=== PATIENT | female | born 1960 | race Caucasian/White ===

== ENCOUNTER → 2017-08-29 15:32 | Outpatient (CLI) | payer OTHER, SELFPAY ==
--- NOTE | 2017-08-29 | FLU_PTH ---
PATIENT: MANNY POOLE LOC: [facility] U#:[id number] AGE/SX: 65/F ROOM: RE08/29/[address]: Dr. Gabby Fofana MD : 1960 BED: DIS: SPEC #: [id number] RECD: 08/31/17 12:11 STATUS: [place] #: [id number] MARTA: 08/29/17 00:[address]: Gabby Fofana DEPT: CYTOLOGY RECD BY: Bernardo Jackson ENTERED: 08/31/17 14:25 SP TYPE: Fluid OTHR DR: Dr. Sterling Knutson MD Tissues: A - Chest wall, NOS B - Chest wall, NOS Procedures: Pap Stain (control) Special Stain Group II Surgery Specimen Level IV Cell Block Cytospin Fluid HEADER OPERATION: FNA of left chest nodules PRE-OP DIAGNOSIS: Chest wall mass status post breast CA and radiation TISSUE SUBMITTED: A ? left chest nodule FNA, fluid for cytology, B ? Slides (6) DIAGNOSIS CYTOLOGY A. Fine needle aspiration, left chest nodule (cytospin and cell block): Amorphous proteinaceous debris. No evidence of malignancy. B. Fine needle aspiration, left chest nodule (smears): Macrophages and amorphous proteinaceous debris. No evidence of malignancy. AM:yunior 09/01/17 CYTOLOGY STUDY Slides are reviewed. CYTOLOGY GROSS A - Received is 25 ml of hazy bloody fluid labeled with the patient's name and and designated per the requisition as left chest nodule. Submitted for cytology preparation including cell block. B - Received are six smears labeled with the patient's name and designated per the requisition as left chest nodule. Submitted for staining. 08/31/17 TC:5 CPT: 85457, 99255, 58066
== END ==
PROVIDERS: Family Provider Family Medicine; PCP Family Medicine; Visit Provider Surgery
DX: R22.2 Localized swelling, mass and lump, trunk (principal); Z85.3 Personal history of malignant neoplasm of breast
CPT/HCPCS: 88108; 88305; 88313

== ENCOUNTER 2020-06-27 14:33 | Outpatient (RCR) | payer OTHER, SELFPAY ==
[2016-08-20 16:02] VITALS: BMI 26.6
== END 2020-06-27 23:59 ==
LOC: IMMUN 14:33
PROVIDERS: PCP Family Medicine; Visit Provider Family Medicine
DX: Z23 Encounter for immunization (principal)
CPT/HCPCS: 0011A; 0012A; 91301

== ENCOUNTER 2023-08-08 11:36 | Observation (INO) | payer OTHER, SELFPAY ==
[2023-08-08] VITALS (12 sets, daily range): BP systolic 99–167; BP diastolic 49–88; PULSE 74–89; RESP 16–20; TEMP 36.4–37.1; O2SAT 90–98; BMI 28.1; BMI 26.6
--- NOTE | 2023-08-08 11:55 | RAD_ITS ---
STUDY: X-RAY - RIGHT ANKLE REASON FOR EXAM: Female, 63 years old. Swelling pain, injury. TECHNIQUE: 3 views of the right ankle. COMPARISON: None. FINDINGS: There is a fracture of the medial malleolus of the distal tibia, with 1.3 cm lateral displacement. There is a fracture of the distal fibula with lateral angulation. There is 1.3 cm lateral subluxation of the talus with respect to the distal tibia. Intact visualized talus and calcaneus. The visualized subtalar, talonavicular, calcaneocuboid and tarsal articulations are normal. There is soft tissue swelling overlying the lateral malleolus. RAD/Ankle min 3 Views IMPRESSION: Fracture of the medial malleolus of the distal tibia, with 1.3 cm lateral displacement. Fracture of the distal fibula with lateral angulation. 1.3 cm lateral subluxation of the talus with respect to the distal tibia. Soft tissue swelling overlying the lateral malleolus. Electronically Signed: Dick Ha MD at 12:14 EST ,
--- NOTE | 2023-08-08 12:26 | ED.VIS.LOWEX ---
HPI <SHANNAN Puentes - Last Filed: 08/08/23 16:03> History of Present Illness Chief Complaint: Lower Extremity Injury Narrative Narrative: Patient presenting today with pain to her right ankle after an injury that occurred last night. She reports that she was walking to take the trash down when she rolled her ankle and fell to the ground. She reports that she was unable to put any pressure on her ankle so she crawled back into her house and crawled into her bed. She lives alone and called her brother this morning to have him bring her to the ER for evaluation. She did not hit her head and denies any other injury. [facility] <SHANNAN Puentes - Last Filed: 08/08/23 16:03> [facility] Medical History History of breast cancer Hypertension Home Medications citalopram 20 mg tablet (Celexa) 20 mg PO DAILY 08/16/16 [History Last Taken 08/20/16 06:00] hydrochlorothiazide 12.5 mg tablet 12.5 mg PO DAILY 08/16/16 [History Last Taken Unknown] potassium chloride 20 mEq tablet,extended release(part/cryst) (Klor-Con M) 40 meq PO DAILY 08/16/16 [History Last Taken Unknown] acidophilus 25 million cell-pectin, citrus 100 mg tablet 1 ea PO BID #30 tabs 08/21/16 [Rx Last Taken Unknown] cephalexin 500 mg capsule (Keflex) 500 mg PO BID ##28 08/21/16 [Rx Last Taken Unknown] diazepam 5 mg tablet 5 mg PO 4X/DAY PRN PRN Spasms ##30 08/21/16 [Rx Last Taken Unknown] docusate sodium 100 mg capsule (DOK) 100 mg PO BID ##30 08/21/16 [Rx Last Taken Unknown] oxycodone 5 mg tablet 5 - 10 mg (1 - 2 x 5 mg) PO 4X/DAY PRN PRN Pain ##50 08/21/16 [Rx Last Taken Unknown] promethazine 25 mg tablet 25 mg PO 4X/DAY PRN PRN NAUSEA/VOMITING ##30 08/21/16 [Rx Last Taken Unknown] Allergy/AdvReac Type Severity Reaction Status Date / Time No Known Allergies Allergy Verified 08/08/23 11:37 Surgical History H/O mastectomy Social History Smoking Status: Current every day smoker tobacco type: cigarettes ROS <SHANNAN Puentes - Last Filed: 08/08/23 16:03> ROS ED Constitutional Constitutional ED: Denies chills or fever(s) Cardiovascular Cardiovascular: Denies chest pain Respiratory/Chest Respiratory/Chest: Denies cough or dyspnea Gastrointestinal Gastrointestinal: Denies abdominal pain, nausea or vomiting Musculoskeletal Musculoskeletal: Reports arthralgias; Denies myalgias Integumentary Denies rash Neurologic Neurologic: Denies paresthesias or weakness EXAM <SHANNAN Puentes - Last Filed: 08/08/23 16:03> Physical Exam Const Vital Signs: 08/08/23 11:37 08/08/23 13:10 08/08/23 13:59 Temperature 97.6 F L 98.3 F Temperature Source Temporal Pulse Rate 84 82 Pulse Rate [1 (Initial Baseline)] 89 Pulse Rate [2] 80 Pulse Rate [3] 76 Pulse Rate [4] 74 Pulse Rate [5] 78 Pulse Rate [6] 80 Pulse Rate [7] 78 Respiratory Rate 18 16 Respiratory Rate [1 (Initial Baseline)] 16 Respiratory Rate [2] 16 Respiratory Rate [3] 16 Respiratory Rate [4] 18 Respiratory Rate [5] 16 Respiratory Rate [6] 18 Respiratory Rate [7] 20 H Blood Pressure 135/66 H 155/67 H Blood Pressure [1 (Initial Baseline)] 167/70 H Blood Pressure [2] 167/70 H Blood Pressure [3] 167/70 H Blood Pressure [4] 167/70 H Blood Pressure [5] 122/53 H Blood Pressure [6] 138/83 H Blood Pressure [7] 108/88 H Blood Pressure Mean 89 Pulse Ox 98 98 Oxygen Delivery Method Room Air Nasal Cannula Oxygen Delivery Method [1 (Initial Baseline)] Nasal Cannula Oxygen Delivery Method [2] Nasal Cannula Oxygen Delivery Method [3] Nasal Cannula Oxygen Delivery Method [4] Nasal Cannula Oxygen Delivery Method [5] Nasal Cannula Oxygen Delivery Method [6] Nasal Cannula Oxygen Delivery Method [7] Nasal Cannula Oxygen Flow Rate (L/min) 2 Oxygen Flow Rate (L/min) [1 (Initial Baseline)] 2 Oxygen Flow Rate (L/min) [2] 2 Oxygen Flow Rate (L/min) [3] 2 Oxygen Flow Rate (L/min) [4] 2 Oxygen Flow Rate (L/min) [5] 2 Oxygen Flow Rate (L/min) [6] 2 Oxygen Flow Rate (L/min) [7] 2 08/08/23 14:17 08/08/23 14:17 08/08/23 14:22 Temperature Temperature Source Pulse Rate 76 76 Pulse Rate [1 (Initial Baseline)] Pulse Rate [2] Pulse Rate [3] Pulse Rate [4] Pulse Rate [5] Pulse Rate [6] Pulse Rate [7] Respiratory Rate 16 16 Respiratory Rate [1 (Initial Baseline)] Respiratory Rate [2] Respiratory Rate [3] Respiratory Rate [4] Respiratory Rate [5] Respiratory Rate [6] Respiratory Rate [7] Blood Pressure 108/88 H 115/52 L Blood Pressure [1 (Initial Baseline)] Blood Pressure [2] Blood Pressure [3] Blood Pressure [4] Blood Pressure [5] Blood Pressure [6] Blood Pressure [7] Blood Pressure Mean 94 Pulse Ox 98 97 Oxygen Delivery Method Nasal Cannula Room Air Room Air Oxygen Delivery Method [1 (Initial Baseline)] Oxygen Delivery Method [2] Oxygen Delivery Method [3] Oxygen Delivery Method [4] Oxygen Delivery Method [5] Oxygen Delivery Method [6] Oxygen Delivery Method [7] Oxygen Flow Rate (L/min) 2 Oxygen Flow Rate (L/min) [1 (Initial Baseline)] Oxygen Flow Rate (L/min) [2] Oxygen Flow Rate (L/min) [3] Oxygen Flow Rate (L/min) [4] Oxygen Flow Rate (L/min) [5] Oxygen Flow Rate (L/min) [6] Oxygen Flow Rate (L/min) [7] 08/08/23 14:25 08/08/23 14:22 08/08/23 14:27 Temperature Temperature Source Pulse Rate 76 Pulse Rate [1 (Initial Baseline)] Pulse Rate [2] Pulse Rate [3] Pulse Rate [4] Pulse Rate [5] Pulse Rate [6] Pulse Rate [7] Respiratory Rate 16 Respiratory Rate [1 (Initial Baseline)] Respiratory Rate [2] Respiratory Rate [3] Respiratory Rate [4] Respiratory Rate [5] Respiratory Rate [6] Respiratory Rate [7] Blood Pressure 107/70 Blood Pressure [1 (Initial Baseline)] Blood Pressure [2] Blood Pressure [3] Blood Pressure [4] Blood Pressure [5] Blood Pressure [6] Blood Pressure [7] Blood Pressure Mean Pulse Ox 97 Oxygen Delivery Method Room Air Room Air Room Air Oxygen Delivery Method [1 (Initial Baseline)] Oxygen Delivery Method [2] Oxygen Delivery Method [3] Oxygen Delivery Method [4] Oxygen Delivery Method [5] Oxygen Delivery Method [6] Oxygen Delivery Method [7] Oxygen Flow Rate (L/min) Oxygen Flow Rate (L/min) [1 (Initial Baseline)] Oxygen Flow Rate (L/min) [2] Oxygen Flow Rate (L/min) [3] Oxygen Flow Rate (L/min) [4] Oxygen Flow Rate (L/min) [5] Oxygen Flow Rate (L/min) [6] Oxygen Flow Rate (L/min) [7] 08/08/23 14:31 08/08/23 14:31 Temperature Temperature Source Pulse Rate 76 75 Pulse Rate [1 (Initial Baseline)] Pulse Rate [2] Pulse Rate [3] Pulse Rate [4] Pulse Rate [5] Pulse Rate [6] Pulse Rate [7] Respiratory Rate 16 16 Respiratory Rate [1 (Initial Baseline)] Respiratory Rate [2] Respiratory Rate [3] Respiratory Rate [4] Respiratory Rate [5] Respiratory Rate [6] Respiratory Rate [7] Blood Pressure 118/59 L 118/59 L Blood Pressure [1 (Initial Baseline)] Blood Pressure [2] Blood Pressure [3] Blood Pressure [4] Blood Pressure [5] Blood Pressure [6] Blood Pressure [7] Blood Pressure Mean 78 Pulse Ox 95 94 Oxygen Delivery Method Room Air Room Air Oxygen Delivery Method [1 (Initial Baseline)] Oxygen Delivery Method [2] Oxygen Delivery Method [3] Oxygen Delivery Method [4] Oxygen Delivery Method [5] Oxygen Delivery Method [6] Oxygen Delivery Method [7] Oxygen Flow Rate (L/min) Oxygen Flow Rate (L/min) [1 (Initial Baseline)] Oxygen Flow Rate (L/min) [2] Oxygen Flow Rate (L/min) [3] Oxygen Flow Rate (L/min) [4] Oxygen Flow Rate (L/min) [5] Oxygen Flow Rate (L/min) [6] Oxygen Flow Rate (L/min) [7] Positive well nourished, well developed and no apparent distress General Appearance ED: well developed HEENT Reports normocephalic and head/scalp atraumatic Mouth ED: Yes moist mucous membranes normal Eyes PERRL and EOMs intact bilaterally Neck full ROM and supple Chest Wall inspection of chest normal Resp normal respiratory effort and clear to auscultation bilaterally Cardio regular rate and regular rhythm GI soft to palpation, non-tender, non-distended and no masses Back/Spine normal ROM and normal to inspection Extremity normal to inspection Extremity Narrative: Swelling, pain, and ecchymosis to the right lateral and medial malleolus, right DP pulse 2+, good capillary refill, sensation intact. Lateral deviation of the right foot. limited range of motion to the right ankle due to pain. Neuro oriented x3, CN's II-XII intact bilaterally, moves all extremities, no focal motor deficits and no sensory deficits noted Sensorium / Orientation: awake and alert Psych mental status grossly normal and thought process normal Skin no rashes or lesions noted and no wounds <Dr. Pacheco Carlisle, DO - Last Filed: 08/08/23 15:05> Physical Exam Const Vital Signs: 08/08/23 11:37 08/08/23 13:10 08/08/23 13:59 Temperature 97.6 F L 98.3 F Temperature Source Temporal Pulse Rate 84 82 Pulse Rate [1 (Initial Baseline)] 89 Pulse Rate [2] 80 Pulse Rate [3] 76 Pulse Rate [4] 74 Pulse Rate [5] 78 Pulse Rate [6] 80 Pulse Rate [7] 78 Respiratory Rate 18 16 Respiratory Rate [1 (Initial Baseline)] 16 Respiratory Rate [2] 16 Respiratory Rate [3] 16 Respiratory Rate [4] 18 Respiratory Rate [5] 16 Respiratory Rate [6] 18 Respiratory Rate [7] 20 H Blood Pressure 135/66 H 155/67 H Blood Pressure [1 (Initial Baseline)] 167/70 H Blood Pressure [2] 167/70 H Blood Pressure [3] 167/70 H Blood Pressure [4] 167/70 H Blood Pressure [5] 122/53 H Blood Pressure [6] 138/83 H Blood Pressure [7] 108/88 H Blood Pressure Mean 89 Pulse Ox 98 98 Oxygen Delivery Method Room Air Nasal Cannula Oxygen Delivery Method [1 (Initial Baseline)] Nasal Cannula Oxygen Delivery Method [2] Nasal Cannula Oxygen Delivery Method [3] Nasal Cannula Oxygen Delivery Method [4] Nasal Cannula Oxygen Delivery Method [5] Nasal Cannula Oxygen Delivery Method [6] Nasal Cannula Oxygen Delivery Method [7] Nasal Cannula Oxygen Flow Rate (L/min) 2 Oxygen Flow Rate (L/min) [1 (Initial Baseline)] 2 Oxygen Flow Rate (L/min) [2] 2 Oxygen Flow Rate (L/min) [3] 2 Oxygen Flow Rate (L/min) [4] 2 Oxygen Flow Rate (L/min) [5] 2 Oxygen Flow Rate (L/min) [6] 2 Oxygen Flow Rate (L/min) [7] 2 08/08/23 14:17 08/08/23 14:17 08/08/23 14:22 Temperature Temperature Source Pulse Rate 76 76 Pulse Rate [1 (Initial Baseline)] Pulse Rate [2] Pulse Rate [3] Pulse Rate [4] Pulse Rate [5] Pulse Rate [6] Pulse Rate [7] Respiratory Rate 16 16 Respiratory Rate [1 (Initial Baseline)] Respiratory Rate [2] Respiratory Rate [3] Respiratory Rate [4] Respiratory Rate [5] Respiratory Rate [6] Respiratory Rate [7] Blood Pressure 108/88 H 115/52 L Blood Pressure [1 (Initial Baseline)] Blood Pressure [2] Blood Pressure [3] Blood Pressure [4] Blood Pressure [5] Blood Pressure [6] Blood Pressure [7] Blood Pressure Mean 94 Pulse Ox 98 97 Oxygen Delivery Method Nasal Cannula Room Air Room Air Oxygen Delivery Method [1 (Initial Baseline)] Oxygen Delivery Method [2] Oxygen Delivery Method [3] Oxygen Delivery Method [4] Oxygen Delivery Method [5] Oxygen Delivery Method [6] Oxygen Delivery Method [7] Oxygen Flow Rate (L/min) 2 Oxygen Flow Rate (L/min) [1 (Initial Baseline)] Oxygen Flow Rate (L/min) [2] Oxygen Flow Rate (L/min) [3] Oxygen Flow Rate (L/min) [4] Oxygen Flow Rate (L/min) [5] Oxygen Flow Rate (L/min) [6] Oxygen Flow Rate (L/min) [7] 08/08/23 14:25 08/08/23 14:22 08/08/23 14:27 Temperature Temperature Source Pulse Rate 76 Pulse Rate [1 (Initial Baseline)] Pulse Rate [2] Pulse Rate [3] Pulse Rate [4] Pulse Rate [5] Pulse Rate [6] Pulse Rate [7] Respiratory Rate 16 Respiratory Rate [1 (Initial Baseline)] Respiratory Rate [2] Respiratory Rate [3] Respiratory Rate [4] Respiratory Rate [5] Respiratory Rate [6] Respiratory Rate [7] Blood Pressure 107/70 Blood Pressure [1 (Initial Baseline)] Blood Pressure [2] Blood Pressure [3] Blood Pressure [4] Blood Pressure [5] Blood Pressure [6] Blood Pressure [7] Blood Pressure Mean Pulse Ox 97 Oxygen Delivery Method Room Air Room Air Room Air Oxygen Delivery Method [1 (Initial Baseline)] Oxygen Delivery Method [2] Oxygen Delivery Method [3] Oxygen Delivery Method [4] Oxygen Delivery Method [5] Oxygen Delivery Method [6] Oxygen Delivery Method [7] Oxygen Flow Rate (L/min) Oxygen Flow Rate (L/min) [1 (Initial Baseline)] Oxygen Flow Rate (L/min) [2] Oxygen Flow Rate (L/min) [3] Oxygen Flow Rate (L/min) [4] Oxygen Flow Rate (L/min) [5] Oxygen Flow Rate (L/min) [6] Oxygen Flow Rate (L/min) [7] 08/08/23 14:31 08/08/23 14:31 Temperature Temperature Source Pulse Rate 76 75 Pulse Rate [1 (Initial Baseline)] Pulse Rate [2] Pulse Rate [3] Pulse Rate [4] Pulse Rate [5] Pulse Rate [6] Pulse Rate [7] Respiratory Rate 16 16 Respiratory Rate [1 (Initial Baseline)] Respiratory Rate [2] Respiratory Rate [3] Respiratory Rate [4] Respiratory Rate [5] Respiratory Rate [6] Respiratory Rate [7] Blood Pressure 118/59 L 118/59 L Blood Pressure [1 (Initial Baseline)] Blood Pressure [2] Blood Pressure [3] Blood Pressure [4] Blood Pressure [5] Blood Pressure [6] Blood Pressure [7] Blood Pressure Mean 78 Pulse Ox 95 94 Oxygen Delivery Method Room Air Room Air Oxygen Delivery Method [1 (Initial Baseline)] Oxygen Delivery Method [2] Oxygen Delivery Method [3] Oxygen Delivery Method [4] Oxygen Delivery Method [5] Oxygen Delivery Method [6] Oxygen Delivery Method [7] Oxygen Flow Rate (L/min) Oxygen Flow Rate (L/min) [1 (Initial Baseline)] Oxygen Flow Rate (L/min) [2] Oxygen Flow Rate (L/min) [3] Oxygen Flow Rate (L/min) [4] Oxygen Flow Rate (L/min) [5] Oxygen Flow Rate (L/min) [6] Oxygen Flow Rate (L/min) [7] [facility] <SHANNAN Puentes - Last Filed: 08/08/23 16:03> [facility] Narrative Medical decision making narrative: Patient presenting today due to an injury to her right ankle that occurred last night. She has a edematous and bruised right foot/ankle. X-ray of the right ankle was obtained and shows fractures of the distal tibia and fibula with lateral angulation. Labs will be obtained, patient was given IV morphine for pain. Ankle did require reduction, this was performed by the attending physician. Patient tolerated procedure well. She was placed in a well-padded splint. Patient lives at home alone, she does not think that she will do well at home by herself, I agree. I did speak with Dr. Rodriguez, with podiatry and he recommends admitting patient to medicine. Labs were obtained, she does not appear to be rhabdomyolysis. She does have hyponatremia, she was given IV fluids. CT was obtained, shows improved alignment. Spoke with hospitalist, she will be admitted in stable condition. I have personally performed a face to face assessment of the patient and have reviewed the RAUDEL Note. I performed a substantive portion of the visit including all aspects of the following. My armstrong findings include: History is patient fell last night was able to get herself up in bed but presenting with deformity to the right ankle. She denies any head or neck injury. She is not on blood thinners. Exam is there is deformity to the right ankle. There is ecchymosis around the distal right leg and ankle joint. Dorsalis pedis pulse. There are abrasions to the bilateral knees. Medical Decison Making I personally spoke with the patient at length regarding procedural sedation with the use of propofol for the closed reduction of the right ankle injury. She consented. My independent trepidation of preprocedure plain films of the right ankle is a acute displaced trimalleolar fracture/dislocation. Basic blood work was obtained shows a total CK of 294. Patient was prepped for procedural sedation in the usual manner. She received 1 mg/kg of propofol followed by 0.5 mg/kg boluses until adequate sedation was achieved. Once adequate sedation was achieved the fracture dislocation was reduced. She was placed in a well-padded Ortho-Glass posterior anterior posterior splint. The patient had a brief episode of hypoxia most likely related to upper airway obstruction. Head-tilt chin left relieve the hypoxia. Patient otherwise recovered without incident. Patient remains neurovascular tact distal. A CT of the ankle was obtained for preoperative planning. Spoke with foot and ankle as well as hospitalist. Plan is admission. Lab Data Attestation: I reviewed the patient's lab results. Lab results narrative: Sodium 125, potassium 3.2, CK 394 Labs: Laboratory Results - last 24 hr 08/08/23 12:35 WBC 10.0 RBC 4.49 Hgb 14.9 Hct 40.4 MCV 90.0 MCH 33.2 H MCHC 36.9 H RDW Std Deviation 37.9 RDW Coeff of Vandana 11.6 Plt Count 242 MPV 9.3 Immature Gran % (Auto) 0.400 Neut % (Auto) 84.5 H Lymph % (Auto) 8.0 L [place]uel[place] % (Auto) 6.9 Eos % (Auto) 0.1 Baso % (Auto) 0.1 Absolute Neuts (auto) 8.4 H Absolute Lymphs (auto) 0.80 L Nucleated RBC % 0 Sodium 125 L Potassium 3.2 L Chloride 91 L Carbon Dioxide 25.0 Anion Gap 9 BUN 9 Creatinine 0.83 Estim Creat Clear Calc 70.31 Est GFR (MDRD) Af Amer 89 Est GFR (MDRD) Non-Af 74 BUN/Creatinine Ratio 10.8 Glucose 141 H Calcium 9.5 Total Creatine Kinase 394 H Radiography X-Ray: Read by ED Physician Diagnostic Testing: Clinical Impression(s) from Imaging Studies Ankle X-Ray 08/08/23 11:55 IMPRESSION: Fracture of the medial malleolus of the distal tibia, with 1.3 cm lateral displacement. Fracture of the distal fibula with lateral angulation. 1.3 cm lateral subluxation of the talus with respect to the distal tibia. Soft tissue swelling overlying the lateral malleolus. Electronically Signed: Dick Ha MD at 12:14 EST , Lower Extremity CT 08/08/23 14:11 IMPRESSION: Trimalleolar fracture-subluxation of the right ankle with improved alignment status post closed reduction. Electronically Signed: Belen Willis MD at 15:02 EST Reading Location ID and State: [facility] / [place] Tel , Service support , <Dr. Pacheco Carlisle, DO - Last Filed: 08/08/23 15:05> [facility] MDM Narrative Medical decision making narrative: Patient presenting today due to an injury to her right ankle that occurred last night. She has a edematous and bruised right foot/ankle. X-ray of the right ankle was obtained and shows fractures of the distal tibia and fibula with lateral angulation. Labs will be obtained, patient was given IV morphine for pain. I have personally performed a face to face assessment of the patient and have reviewed the RAUDEL Note. I performed a substantive portion of the visit including all aspects of the following. My armstrong findings include: History is patient fell last night was able to get herself up in bed but presenting with deformity to the right ankle. She denies any head or neck injury. She is not on blood thinners. Exam is there is deformity to the right ankle. There is ecchymosis around the distal right leg and ankle joint. Dorsalis pedis pulse. There are abrasions to the bilateral knees. Medical Decison Making I personally spoke with the patient at length regarding procedural sedation with the use of propofol for the closed reduction of the right ankle injury. She consented. My independent trepidation of preprocedure plain films of the right ankle is a acute displaced trimalleolar fracture/dislocation. Basic blood work was obtained shows a total CK of 294. Patient was prepped for procedural sedation in the usual manner. She received 1 mg/kg of propofol followed by 0.5 mg/kg boluses until adequate sedation was achieved. Once adequate sedation was achieved the fracture dislocation was reduced. She was placed in a well-padded Ortho-Glass posterior anterior posterior splint. The patient had a brief episode of hypoxia most likely related to upper airway obstruction. Head-tilt chin left relieve the hypoxia. Patient otherwise recovered without incident. Patient remains neurovascular tact distal. A CT of the ankle was obtained for preoperative planning. Spoke with foot and ankle as well as hospitalist. Plan is admission. Lab Data Labs: Laboratory Results - last 24 hr 08/08/23 12:35 WBC 10.0 RBC 4.49 Hgb 14.9 Hct 40.4 MCV 90.0 MCH 33.2 H MCHC 36.9 H RDW Std Deviation 37.9 RDW Coeff of Vandana 11.6 Plt Count 242 MPV 9.3 Immature Gran % (Auto) 0.400 Neut % (Auto) 84.5 H Lymph % (Auto) 8.0 L [place] % (Auto) 6.9 Eos % (Auto) 0.1 Baso % (Auto) 0.1 Absolute Neuts (auto) 8.4 H Absolute Lymphs (auto) 0.80 L Nucleated RBC % 0 Sodium 125 L Potassium 3.2 L Chloride 91 L Carbon Dioxide 25.0 Anion Gap 9 BUN 9 Creatinine 0.83 Estim Creat Clear Calc 70.31 Est GFR (MDRD) Af Amer 89 Est GFR (MDRD) Non-Af 74 BUN/Creatinine Ratio 10.8 Glucose 141 H Calcium 9.5 Total Creatine Kinase 394 H Radiography Diagnostic Testing: Clinical Impression(s) from Imaging Studies Ankle X-Ray 08/08/23 11:55 IMPRESSION: Fracture of the medial malleolus of the distal tibia, with 1.3 cm lateral displacement. Fracture of the distal fibula with lateral angulation. 1.3 cm lateral subluxation of the talus with respect to the distal tibia. Soft tissue swelling overlying the lateral malleolus. Electronically Signed: Dick Ha MD at 12:14 EST , Lower Extremity CT 08/08/23 14:11 IMPRESSION: Trimalleolar fracture-subluxation of the right ankle with improved alignment status post closed reduction. Electronically Signed: Belen Willis MD at 15:02 EST , Procedures <Dr. Pacheco Carlisle, DO - Last Filed: 08/08/23 15:05> Procedural Sedation 1 (Initial Baseline): Consent Signed: Yes Any Problems With Anesthesia: No You/Your family experience fever (hyperthermia) w/anesthesia: No Sedation medication: Propofol Dose: 160 Route: IV Total Moderate Sedation Units: 12 Maliampati Score: Class II ASA Classification: I Discharge Plan Dx/Rx/DC Orders Clinical Impression: Closed trimalleolar fracture of ankle, Tobacco abuse, Fall, Acute hyponatremia Disposition Disposition: Acute Care Hospital [facility]
[2023-08-08] MEDS: Morphine 4 MG/ML Syringe IV (12:41)
[2023-08-08] MEDS: Ondansetron 4 MG/2 ML Vial IV (12:41)
[2023-08-08 12:54] LABS: Absolute Neutrophil Count 8.4 X10^3/uL (2.0-7.7); Basophil# 0.01 X10^3/uL; Basophil% 0.1 % (0-1); Eosinophil# 0.01 X10^3/uL; Eosinophils% 0.1 % (0-5); Hematocrit 40.4 % (37-47); Hemoglobin 14.9 g/dL (12.0-15.0); Mean Corp Hgb Conc 36.9 g/dL (32-36); Mean Corpuscular Hgb 33.2 pg (27.0-32.0); Mean Platelet Vol. 9.3 fl (6.2-12.0); Monocyte# 0.69 X10^3/uL; Monocyte% 6.9 % (0-10); NRBC Flagged by Analyzer 0 % (0-5); Neutrophil # 8.42 X10^3/uL (2.7-7.7); Neutrophil % 84.5 % (47-70); Platelet Count 242 K/mm3 (150-450); RBC Distribution Width CV 11.6 % (11.6-14.6); RBC Distribution Width SD 37.9 fl (35.1-43.9); Red Blood Count 4.49 M/mm3 (4.2-5.4)
[2023-08-08 13:03] LABS: Anion Gap 9 (5-15); BUN 9 mg/dL (7-18); BUN/Creat Ratio 10.8 RATIO (10-20); CPK Total, Creatine Kinase 394 U/L (26-192); Calcium,Total 9.5 mg/dL (8.5-10.1); Chloride 91 mmol/L (98-107); Creatinine, Serum 0.83 mg/dL (0.55-1.02); EST Glomerular Filtration Rate 74 mL/min (>60); Est Glom Filt Rate - Afr Amer 89 mL/min (>60); Estimated Creatinine Clearance 70.31 ml/min; Glucose 141 mg/dL (74-106); Potassium 3.2 mmol/L (3.5-5.1); Sodium Level 125 mmol/L (136-145)
--- NOTE | 2023-08-08 14:11 | CT_ITS ---
HISTORY: ankle fracture. TECHNIQUE: Helically acquired images were obtained of the right ankle. 2-D reformats were performed by the technologist. A radiation dose optimization technique was used for this scan. IV Contrast dosage and agent: None. 257 images. COMPARISON: XR same day. FINDINGS: BONES: Comminuted fracture of the distal fibula with small intra-articular fragments, decreased posterior lateral displacement, and decreased overlap. Comminuted fractures of the posterior and medial malleoli with mildly decreased medial displacement of the medial malleolar fragment. JOINT SPACES: Reduction of ankle subluxation with improved alignment. SOFT TISSUES: Marked surrounding soft tissue swelling with overlying cast noted. CT/Extremity Lower without Contra IMPRESSION: Trimalleolar fracture-subluxation of the right ankle with improved alignment status post closed reduction. Electronically Signed: Belen Willis MD at 15:02 EST ,
[2023-08-08] MEDS: Propofol 200 MG/20 ML Vial IV BOLUS (14:20)
--- NOTE | 2023-08-08 16:05 | EKG12_ITS ---
Test Reason : FLOOR ORDER Blood Pressure : / mmHG Vent. Rate : 087 BPM Atrial Rate : 087 BPM P-R Int : 150 ms QRS Dur : 086 ms QT Int : 392 ms P-R-T Axes : 049 004 026 degrees QTc Int : 471 ms Normal sinus rhythm Normal ECG Confirmed by Josef Bran ([id number]), electronic news gathering editor ALLY MANCILLA ([id number]) on 08/10/2023 9:31:24 AM Referred By: Confirmed By:Josef Bran
--- NOTE | 2023-08-08 16:05 | HP.PCM.HOS_ITS ---
HPI - General HPI Narrative MANNY POOLE, is a 63 F who presents [facility] Medical History History of breast cancer Hypertension Home Medications citalopram 20 mg tablet (Celexa) 20 mg PO DAILY 08/16/16 [History Last Taken 08/20/16 06:00] hydrochlorothiazide 12.5 mg tablet 12.5 mg PO DAILY 08/16/16 [History Last Taken Unknown] potassium chloride 20 mEq tablet,extended release(part/cryst) (Klor-Con M) 40 meq PO DAILY 08/16/16 [History Last Taken Unknown] acidophilus 25 million cell-pectin, citrus 100 mg tablet 1 ea PO BID #30 tabs 08/21/16 [Rx Last Taken Unknown] cephalexin 500 mg capsule (Keflex) 500 mg PO BID ##28 08/21/16 [Rx Last Taken Unknown] diazepam 5 mg tablet 5 mg PO 4X/DAY PRN PRN Spasms ##30 08/21/16 [Rx Last Taken Unknown] docusate sodium 100 mg capsule (DOK) 100 mg PO BID ##30 08/21/16 [Rx Last Taken Unknown] oxycodone 5 mg tablet 5 - 10 mg (1 - 2 x 5 mg) PO 4X/DAY PRN PRN Pain ##50 08/21/16 [Rx Last Taken Unknown] promethazine 25 mg tablet 25 mg PO 4X/DAY PRN PRN NAUSEA/VOMITING ##30 08/21/16 [Rx Last Taken Unknown] Allergy/AdvReac Type Severity Reaction Status Date / Time No Known Allergies Allergy Verified 08/08/23 11:37 Surgical History H/O mastectomy Social History Smoking Status: Current every day smoker tobacco type: cigarettes Vital Signs Vital Signs Vital Signs: 08/08/23 11:37 08/08/23 13:10 08/08/23 13:59 Temperature 97.6 F L 98.3 F Temperature Source Temporal Pulse Rate 84 82 Pulse Rate [1 (Initial Baseline)] 89 Pulse Rate [2] 80 Pulse Rate [3] 76 Pulse Rate [4] 74 Pulse Rate [5] 78 Pulse Rate [6] 80 Pulse Rate [7] 78 Respiratory Rate 18 16 Respiratory Rate [1 (Initial Baseline)] 16 Respiratory Rate [2] 16 Respiratory Rate [3] 16 Respiratory Rate [4] 18 Respiratory Rate [5] 16 Respiratory Rate [6] 18 Respiratory Rate [7] 20 H Blood Pressure 135/66 H 155/67 H Blood Pressure [1 (Initial Baseline)] 167/70 H Blood Pressure [2] 167/70 H Blood Pressure [3] 167/70 H Blood Pressure [4] 167/70 H Blood Pressure [5] 122/53 H Blood Pressure [6] 138/83 H Blood Pressure [7] 108/88 H Blood Pressure Mean 89 Pulse Ox 98 98 Oxygen Delivery Method Room Air Nasal Cannula Oxygen Delivery Method [1 (Initial Baseline)] Nasal Cannula Oxygen Delivery Method [2] Nasal Cannula Oxygen Delivery Method [3] Nasal Cannula Oxygen Delivery Method [4] Nasal Cannula Oxygen Delivery Method [5] Nasal Cannula Oxygen Delivery Method [6] Nasal Cannula Oxygen Delivery Method [7] Nasal Cannula Oxygen Flow Rate (L/min) 2 Oxygen Flow Rate (L/min) [1 (Initial Baseline)] 2 Oxygen Flow Rate (L/min) [2] 2 Oxygen Flow Rate (L/min) [3] 2 Oxygen Flow Rate (L/min) [4] 2 Oxygen Flow Rate (L/min) [5] 2 Oxygen Flow Rate (L/min) [6] 2 Oxygen Flow Rate (L/min) [7] 2 08/08/23 14:17 08/08/23 14:17 08/08/23 14:22 Temperature Temperature Source Pulse Rate 76 76 Pulse Rate [1 (Initial Baseline)] Pulse Rate [2] Pulse Rate [3] Pulse Rate [4] Pulse Rate [5] Pulse Rate [6] Pulse Rate [7] Respiratory Rate 16 16 Respiratory Rate [1 (Initial Baseline)] Respiratory Rate [2] Respiratory Rate [3] Respiratory Rate [4] Respiratory Rate [5] Respiratory Rate [6] Respiratory Rate [7] Blood Pressure 108/88 H 115/52 L Blood Pressure [1 (Initial Baseline)] Blood Pressure [2] Blood Pressure [3] Blood Pressure [4] Blood Pressure [5] Blood Pressure [6] Blood Pressure [7] Blood Pressure Mean 94 Pulse Ox 98 97 Oxygen Delivery Method Nasal Cannula Room Air Room Air Oxygen Delivery Method [1 (Initial Baseline)] Oxygen Delivery Method [2] Oxygen Delivery Method [3] Oxygen Delivery Method [4] Oxygen Delivery Method [5] Oxygen Delivery Method [6] Oxygen Delivery Method [7] Oxygen Flow Rate (L/min) 2 Oxygen Flow Rate (L/min) [1 (Initial Baseline)] Oxygen Flow Rate (L/min) [2] Oxygen Flow Rate (L/min) [3] Oxygen Flow Rate (L/min) [4] Oxygen Flow Rate (L/min) [5] Oxygen Flow Rate (L/min) [6] Oxygen Flow Rate (L/min) [7] 08/08/23 14:25 08/08/23 14:22 08/08/23 14:27 Temperature Temperature Source Pulse Rate 76 Pulse Rate [1 (Initial Baseline)] Pulse Rate [2] Pulse Rate [3] Pulse Rate [4] Pulse Rate [5] Pulse Rate [6] Pulse Rate [7] Respiratory Rate 16 Respiratory Rate [1 (Initial Baseline)] Respiratory Rate [2] Respiratory Rate [3] Respiratory Rate [4] Respiratory Rate [5] Respiratory Rate [6] Respiratory Rate [7] Blood Pressure 107/70 Blood Pressure [1 (Initial Baseline)] Blood Pressure [2] Blood Pressure [3] Blood Pressure [4] Blood Pressure [5] Blood Pressure [6] Blood Pressure [7] Blood Pressure Mean Pulse Ox 97 Oxygen Delivery Method Room Air Room Air Room Air Oxygen Delivery Method [1 (Initial Baseline)] Oxygen Delivery Method [2] Oxygen Delivery Method [3] Oxygen Delivery Method [4] Oxygen Delivery Method [5] Oxygen Delivery Method [6] Oxygen Delivery Method [7] Oxygen Flow Rate (L/min) Oxygen Flow Rate (L/min) [1 (Initial Baseline)] Oxygen Flow Rate (L/min) [2] Oxygen Flow Rate (L/min) [3] Oxygen Flow Rate (L/min) [4] Oxygen Flow Rate (L/min) [5] Oxygen Flow Rate (L/min) [6] Oxygen Flow Rate (L/min) [7] 08/08/23 14:31 08/08/23 14:31 Temperature Temperature Source Pulse Rate 76 75 Pulse Rate [1 (Initial Baseline)] Pulse Rate [2] Pulse Rate [3] Pulse Rate [4] Pulse Rate [5] Pulse Rate [6] Pulse Rate [7] Respiratory Rate 16 16 Respiratory Rate [1 (Initial Baseline)] Respiratory Rate [2] Respiratory Rate [3] Respiratory Rate [4] Respiratory Rate [5] Respiratory Rate [6] Respiratory Rate [7] Blood Pressure 118/59 L 118/59 L Blood Pressure [1 (Initial Baseline)] Blood Pressure [2] Blood Pressure [3] Blood Pressure [4] Blood Pressure [5] Blood Pressure [6] Blood Pressure [7] Blood Pressure Mean 78 Pulse Ox 95 94 Oxygen Delivery Method Room Air Room Air Oxygen Delivery Method [1 (Initial Baseline)] Oxygen Delivery Method [2] Oxygen Delivery Method [3] Oxygen Delivery Method [4] Oxygen Delivery Method [5] Oxygen Delivery Method [6] Oxygen Delivery Method [7] Oxygen Flow Rate (L/min) Oxygen Flow Rate (L/min) [1 (Initial Baseline)] Oxygen Flow Rate (L/min) [2] Oxygen Flow Rate (L/min) [3] Oxygen Flow Rate (L/min) [4] Oxygen Flow Rate (L/min) [5] Oxygen Flow Rate (L/min) [6] Oxygen Flow Rate (L/min) [7] Weight Weight: 74.389 kg Body Mass Index (BMI) 28.1 Results Lab / Micro Data 08/08/23 12:35 08/08/23 12:35 Labs: Laboratory Results - last 24 hr 08/08/23 12:35: WBC 10.0, RBC 4.49, Hgb 14.9, Hct 40.4, MCV 90.0, MCH 33.2 H, MCHC 36.9 H, RDW Std Deviation 37.9, RDW Coeff of Vandana 11.6, Plt Count 242, MPV 9.3, Immature Gran % (Auto) 0.400, Neut % (Auto) 84.5 H, Lymph % (Auto) 8.0 L, [place] % (Auto) 6.9, Eos % (Auto) 0.1, Baso % (Auto) 0.1, Absolute Neuts (auto) 8.4 H, Absolute Lymphs (auto) 0.80 L, Nucleated RBC % 0, Sodium 125 L, Potassium 3.2 L, Chloride 91 L, Carbon Dioxide 25.0, Anion Gap 9, BUN 9, Creatinine 0.83, Estim Creat Clear Calc 70.31, Est GFR (MDRD) Af Amer 89, Est GFR (MDRD) Non-Af 74, BUN/Creatinine Ratio 10.8, Glucose 141 H, Calcium 9.5, Total Creatine Kinase 394 H Imaging Radiology Impression Ankle X-Ray 08/08/23 11:55 IMPRESSION: Fracture of the medial malleolus of the distal tibia, with 1.3 cm lateral displacement. Fracture of the distal fibula with lateral angulation. 1.3 cm lateral subluxation of the talus with respect to the distal tibia. Soft tissue swelling overlying the lateral malleolus. Electronically Signed: Dick Ha MD at 12:14 EST , Lower Extremity CT 08/08/23 14:11 IMPRESSION: Trimalleolar fracture-subluxation of the right ankle with improved alignment status post closed reduction. Electronically Signed: Belen Willis MD at 15:02 EST , Assessment & Plan Assessment/Plan (1) Acute hyponatremia: (2) Fall: (3) Closed trimalleolar fracture of ankle: (4) Hypokalemia: (5) Hyperglycemia: PLAN: Plan Right ankle closed trimalleolar fracture -Status post closed reduction in the ED -Will require surgery and Dr. Rodriguez has been notified and consulted -Will make n.p.o. in preparation for potential surgery tomorrow -Scheduled Tylenol -As needed oxycodone -As needed IV Dilaudid -Will scheduled Colace -As needed senna -PT/OT consultation for postoperative assistance -Check EKG and chest x-ray for preoperative purposes Acute hypokalemia -40 mill equivalents p.o. potassium -Repeat lab in a.m. -Check a magnesium level Acute hyponatremia -Unclear if this is acute or chronic as we have no recent labs here -Most recent sodium was 136 in 2017 -Hold hydrochlorothiazide -Will gently hydrate and repeat labs at 9 PM--> if does not improve will pursue further workup -Check TSH -Check cortisol level Mechanical fall with resultant right trimalleolar fracture -Related to unlevel footing -PT/OT consultation History of breast cancer -Currently in remission -Status post bilateral radical mastectomy Hypertension -Hold home hydrochlorothiazide -As needed hydralazine for systolic greater than 160 -Monitor blood pressure Chronic pain -Home medications have not yet been verified -Will hold home narcotics as she will be getting narcotics as above -Will restart diazepam if she still taking Tobacco abuse -Recommend cessation -Nicotine patch made available at 21 mcg as patient smokes about a pack a day DVT prophylaxis -Subcu Lovenox daily CODE STATUS -Full code is verified on admission Charges/Coding Visit Charges Inpatient E&M: 52918 Init Hosp L2
--- NOTE | 2023-08-08 16:05 | PCM.HP.STD ---
HPI - General General Date of Admission: 08/08/23 Date of Service: 08/08/23 Chief Complaint: Right ankle pain HPI Narrative MANNY POOLE, is a 63 F who presented to the emergency department at [facility] on 08/07/2024 due to right ankle pain. She states late last evening she was taking her trash out to the curb at which time she stepped on an unlevel surface and rolled her ankle. She had immediate pain and was unable to bear weight and crawled back into the house. She waited at home till this morning and she did not want to bother anybody for help last evening and then called today when she still was not able to bear weight and having significant pain in her ankle. Imaging revealed a trimalleolar fracture of her right ankle and this was reduced and splinted by the emergency department physician. They contacted Dr. Rodriguez who requested admission by medicine with consultation for surgery. Vital signs emergency department showed temperature of 97.6, heart rate was 84, blood pressure was 135/66, respiratory was 18 oxygen saturations were 98% room air. Her CBC was unremarkable. Her chemistry panel showed hyponatremia with a sodium of 125, hypokalemia with a potassium of 3.2, but normal renal function. Her glucose was 141 and she does not appear to have a diagnosis of diabetes. CT of the ankle showed a comminuted fracture of the distal fibula with small intra-articular fragments, decreased posterior lateral displacement and increased overlap, comminuted fractures of the posterior medial malleolar eye with mildly decreased medial displacement of the medial malleolar fragment. She will be admitted as a full admission for surgery and ongoing care for her hyponatremia and hypokalemia. I do anticipate she may need placement at discharge as she lives alone. [facility] Medical History (Updated 08/08/23 @ 16:[address] Aislinn Ha DO) Depression History of breast cancer Hypertension Home Medications citalopram 20 mg tablet (Celexa) 20 mg PO DAILY 08/16/16 [History Last Taken 08/20/16 06:00] hydrochlorothiazide 25 mg tablet 25 mg PO DAILY 08/08/23 [History Last Taken Unknown] Allergy/AdvReac Type Severity Reaction Status Date / Time No Known Allergies Allergy Verified 08/08/23 11:37 no significant family history Surgical History H/O mastectomy Social History (Updated 08/08/23 @ 16:[address] Aislinn Ha DO) household members: none housing: house Smoking Status: Current every day smoker tobacco type: cigarettes Smoking packs per day: 1 Smoking cigarettes per day: 20.0 Years smoked: 40 Smoking pack-years: 40.00 alcohol intake: never substance use type: does not use ROS Constitutional Constitutional: Denies anorexia, change in weight, chills, fatigue, fever(s), malaise, night sweats, weakness or other Eyes Eyes: Denies blurry vision, change in eye color, change in vision, discharge from eye(s), double vision, erythema, eye pain, loss of vision or other ENT HEENT: Denies abnormal hearing, dysphagia, ear pain, epistaxis, headache(s), hearing loss, nasal congestion, nasal discharge, post nasal drip, sinus pressure, sore throat or other Cardiovascular Cardiovascular: Denies chest pain, claudication, dyspnea on exertion, edema, lightheadedness, orthopnea, palpitations, paroxysmal nocturnal dyspnea, rapid heart rate, syncope or other Respiratory/Chest Respiratory/Chest: Denies cough, dyspnea, excessive phlegm production, hemoptysis, productive cough, shortness of breath at rest, shortness of breath with exertion, wheezing or other Gastrointestinal Gastrointestinal: Denies abdominal pain, coffee ground emesis, constipation, diarrhea, dyspepsia, hematemesis, hematochezia, loose stools, melena, nausea, vomiting or other Genitourinary Genitourinary: Denies burning urination, difficulty urinating, dysuria, hematuria, nocturia, urinary frequency, urinary hesitancy, urinary incontinence, urinary urgency or other Musculoskeletal Musculoskeletal: Reports joint pain, joint stiffness and joint swelling; Denies arthralgias, back pain, myalgias, neck pain or other Neurologic Neurologic: Denies abnormal gait, abnormal speech, confusion, disequilibrium, dizziness, focal weakness, headache(s), numbness, paresthesias, seizure-like activity, seizures, syncope, tingling, tremor(s) or other Psychiatric Psychiatric: Reports depression; Denies anxiety, homicidal ideation, suicidal ideation or other Endocrine Endocrinology: Denies change in body appearance, cold intolerance, excessive sweating, heat intolerance, polydipsia, polyuria or other Hematologic/Lymphatic Hematologic/Lymphatic: Denies anemia, easy bleeding, easy bruising, lymphadenopathy or other Allergic/Immunologic Allergic/Immunologic: Denies rhinitis, hives, eczemia, asthma or other Vital Signs Vital Signs Vital Signs: 08/08/23 11:37 08/08/23 13:10 08/08/23 13:59 Temperature 97.6 F L 98.3 F Temperature Source Temporal Pulse Rate 84 82 Pulse Rate [1 (Initial Baseline)] 89 Pulse Rate [2] 80 Pulse Rate [3] 76 Pulse Rate [4] 74 Pulse Rate [5] 78 Pulse Rate [6] 80 Pulse Rate [7] 78 Respiratory Rate 18 16 Respiratory Rate [1 (Initial Baseline)] 16 Respiratory Rate [2] 16 Respiratory Rate [3] 16 Respiratory Rate [4] 18 Respiratory Rate [5] 16 Respiratory Rate [6] 18 Respiratory Rate [7] 20 H Blood Pressure 135/66 H 155/67 H Blood Pressure [1 (Initial Baseline)] 167/70 H Blood Pressure [2] 167/70 H Blood Pressure [3] 167/70 H Blood Pressure [4] 167/70 H Blood Pressure [5] 122/53 H Blood Pressure [6] 138/83 H Blood Pressure [7] 108/88 H Blood Pressure Mean 89 Pulse Ox 98 98 Oxygen Delivery Method Room Air Nasal Cannula Oxygen Delivery Method [1 (Initial Baseline)] Nasal Cannula Oxygen Delivery Method [2] Nasal Cannula Oxygen Delivery Method [3] Nasal Cannula Oxygen Delivery Method [4] Nasal Cannula Oxygen Delivery Method [5] Nasal Cannula Oxygen Delivery Method [6] Nasal Cannula Oxygen Delivery Method [7] Nasal Cannula Oxygen Flow Rate (L/min) 2 Oxygen Flow Rate (L/min) [1 (Initial Baseline)] 2 Oxygen Flow Rate (L/min) [2] 2 Oxygen Flow Rate (L/min) [3] 2 Oxygen Flow Rate (L/min) [4] 2 Oxygen Flow Rate (L/min) [5] 2 Oxygen Flow Rate (L/min) [6] 2 Oxygen Flow Rate (L/min) [7] 2 08/08/23 14:17 08/08/23 14:17 08/08/23 14:22 Temperature Temperature Source Pulse Rate 76 76 Pulse Rate [1 (Initial Baseline)] Pulse Rate [2] Pulse Rate [3] Pulse Rate [4] Pulse Rate [5] Pulse Rate [6] Pulse Rate [7] Respiratory Rate 16 16 Respiratory Rate [1 (Initial Baseline)] Respiratory Rate [2] Respiratory Rate [3] Respiratory Rate [4] Respiratory Rate [5] Respiratory Rate [6] Respiratory Rate [7] Blood Pressure 108/88 H 115/52 L Blood Pressure [1 (Initial Baseline)] Blood Pressure [2] Blood Pressure [3] Blood Pressure [4] Blood Pressure [5] Blood Pressure [6] Blood Pressure [7] Blood Pressure Mean 94 Pulse Ox 98 97 Oxygen Delivery Method Nasal Cannula Room Air Room Air Oxygen Delivery Method [1 (Initial Baseline)] Oxygen Delivery Method [2] Oxygen Delivery Method [3] Oxygen Delivery Method [4] Oxygen Delivery Method [5] Oxygen Delivery Method [6] Oxygen Delivery Method [7] Oxygen Flow Rate (L/min) 2 Oxygen Flow Rate (L/min) [1 (Initial Baseline)] Oxygen Flow Rate (L/min) [2] Oxygen Flow Rate (L/min) [3] Oxygen Flow Rate (L/min) [4] Oxygen Flow Rate (L/min) [5] Oxygen Flow Rate (L/min) [6] Oxygen Flow Rate (L/min) [7] 08/08/23 14:25 08/08/23 14:22 08/08/23 14:27 Temperature Temperature Source Pulse Rate 76 Pulse Rate [1 (Initial Baseline)] Pulse Rate [2] Pulse Rate [3] Pulse Rate [4] Pulse Rate [5] Pulse Rate [6] Pulse Rate [7] Respiratory Rate 16 Respiratory Rate [1 (Initial Baseline)] Respiratory Rate [2] Respiratory Rate [3] Respiratory Rate [4] Respiratory Rate [5] Respiratory Rate [6] Respiratory Rate [7] Blood Pressure 107/70 Blood Pressure [1 (Initial Baseline)] Blood Pressure [2] Blood Pressure [3] Blood Pressure [4] Blood Pressure [5] Blood Pressure [6] Blood Pressure [7] Blood Pressure Mean Pulse Ox 97 Oxygen Delivery Method Room Air Room Air Room Air Oxygen Delivery Method [1 (Initial Baseline)] Oxygen Delivery Method [2] Oxygen Delivery Method [3] Oxygen Delivery Method [4] Oxygen Delivery Method [5] Oxygen Delivery Method [6] Oxygen Delivery Method [7] Oxygen Flow Rate (L/min) Oxygen Flow Rate (L/min) [1 (Initial Baseline)] Oxygen Flow Rate (L/min) [2] Oxygen Flow Rate (L/min) [3] Oxygen Flow Rate (L/min) [4] Oxygen Flow Rate (L/min) [5] Oxygen Flow Rate (L/min) [6] Oxygen Flow Rate (L/min) [7] 08/08/23 14:31 08/08/23 14:31 Temperature Temperature Source Pulse Rate 76 75 Pulse Rate [1 (Initial Baseline)] Pulse Rate [2] Pulse Rate [3] Pulse Rate [4] Pulse Rate [5] Pulse Rate [6] Pulse Rate [7] Respiratory Rate 16 16 Respiratory Rate [1 (Initial Baseline)] Respiratory Rate [2] Respiratory Rate [3] Respiratory Rate [4] Respiratory Rate [5] Respiratory Rate [6] Respiratory Rate [7] Blood Pressure 118/59 L 118/59 L Blood Pressure [1 (Initial Baseline)] Blood Pressure [2] Blood Pressure [3] Blood Pressure [4] Blood Pressure [5] Blood Pressure [6] Blood Pressure [7] Blood Pressure Mean 78 Pulse Ox 95 94 Oxygen Delivery Method Room Air Room Air Oxygen Delivery Method [1 (Initial Baseline)] Oxygen Delivery Method [2] Oxygen Delivery Method [3] Oxygen Delivery Method [4] Oxygen Delivery Method [5] Oxygen Delivery Method [6] Oxygen Delivery Method [7] Oxygen Flow Rate (L/min) Oxygen Flow Rate (L/min) [1 (Initial Baseline)] Oxygen Flow Rate (L/min) [2] Oxygen Flow Rate (L/min) [3] Oxygen Flow Rate (L/min) [4] Oxygen Flow Rate (L/min) [5] Oxygen Flow Rate (L/min) [6] Oxygen Flow Rate (L/min) [7] Weight Weight: 74.389 kg Body Mass Index (BMI) 28.1 Physical Exam Const alert, oriented x3, no apparent distress and well nourished Constitutional Narrative: Overweight, upper middle-aged, white female, lying in bed, currently appears comfortable, nontoxic General Appearance: cooperative HEENT normocephalic, head/scalp atraumatic, hearing grossly normal bilaterally and moist oral mucous membranes HEENT Narrative: Dentition is poor, Mallampati is 2-3, no thrush Resp normal respiratory effort, no retractions, no use of accessory muscles and clear to auscultation bilaterally Resp Narrative: Diffusely diminished but clear Auscultation: Negative for rales, rhonchi or wheezes Cardio regular rate, regular rhythm, S1 normal heart sound, S2 normal heart sound, no murmurs, no rub, no gallops and no clicks GI normal to inspection, nondistended, normoactive bowel sounds, soft to palpation and non-tender Extremity Extremity Narrative: Left lower extremity is unremarkable with no clubbing, cyanosis, edema, right lower extremity has 2+ cap refill at toes and is in a splint Neuro oriented x3, CN's II-XII intact bilaterally and no focal motor deficits Neuro Narrative: Unable to move right leg distal to the knee due to fracture but no focal deficits Speech: speech normal Psych affect normal Psych Narrative: Very pleasant, interacts appropriately, eye contact is good Results Lab / Micro Data Attestation: I reviewed the patient's lab results. 08/08/23 12:35 08/08/23 12:35 Labs: Laboratory Results - last 24 hr 08/08/23 12:35: WBC 10.0, RBC 4.49, Hgb 14.9, Hct 40.4, MCV 90.0, MCH 33.2 H, MCHC 36.9 H, RDW Std Deviation 37.9, RDW Coeff of Vandana 11.6, Plt Count 242, MPV 9.3, Immature Gran % (Auto) 0.400, Neut % (Auto) 84.5 H, Lymph % (Auto) 8.0 L, [place] % (Auto) 6.9, Eos % (Auto) 0.1, Baso % (Auto) 0.1, Absolute Neuts (auto) 8.4 H, Absolute Lymphs (auto) 0.80 L, Nucleated RBC % 0, Sodium 125 L, Potassium 3.2 L, Chloride 91 L, Carbon Dioxide 25.0, Anion Gap 9, BUN 9, Creatinine 0.83, Estim Creat Clear Calc 70.31, Est GFR (MDRD) Af Amer 89, Est GFR (MDRD) Non-Af 74, BUN/Creatinine Ratio 10.8, Glucose 141 H, Calcium 9.5, Total Creatine Kinase 394 H Imaging Radiology Impression Ankle X-Ray 08/08/23 11:55 IMPRESSION: Fracture of the medial malleolus of the distal tibia, with 1.3 cm lateral displacement. Fracture of the distal fibula with lateral angulation. 1.3 cm lateral subluxation of the talus with respect to the distal tibia. Soft tissue swelling overlying the lateral malleolus. Electronically Signed: Dick Ha MD at 12:14 EST , Lower Extremity CT 08/08/23 14:11 IMPRESSION: Trimalleolar fracture-subluxation of the right ankle with improved alignment status post closed reduction. Electronically Signed: Belen Willis MD at 15:02 EST , Assessment & Plan Assessment/Plan (1) Acute hyponatremia: (2) Fall: (3) Closed trimalleolar fracture of ankle: (4) Hypokalemia: (5) Hyperglycemia: PLAN: Plan Right ankle closed trimalleolar fracture -Status post closed reduction in the ED -Will require surgery and Dr. Rodriguez has been notified and consulted -Will make n.p.o. in preparation for potential surgery tomorrow -Scheduled Tylenol -As needed oxycodone -As needed IV Dilaudid -Will scheduled Colace -As needed senna -PT/OT consultation for postoperative assistance -Check EKG and chest x-ray for preoperative purposes Acute hypokalemia -40 mill equivalents p.o. potassium -Repeat lab in a.m. -Check a magnesium level Acute hyponatremia -Unclear if this is acute or chronic as we have no recent labs here -Most recent sodium was 136 in 2017 -Hold hydrochlorothiazide -Will continue citalopram for now but this also could be contributing -Will gently hydrate and repeat labs at 9 PM--> if does not improve will pursue further workup -Check TSH -Check cortisol level Mechanical fall with resultant right trimalleolar fracture -Related to unlevel footing -PT/OT consultation History of breast cancer -Currently in remission -Status post bilateral radical mastectomy Hypertension -Hold home hydrochlorothiazide -As needed hydralazine for systolic greater than 160 -Monitor blood pressure Depression -Continue home citalopram for now but could consider discontinuing if sodium does not improve Tobacco abuse -Recommend cessation -Nicotine patch made available at 21 mcg as patient smokes about a pack a day DVT prophylaxis -Subcu Lovenox daily CODE STATUS -Full code is verified on admission Charges/Coding Visit Charges Inpatient E&M: 32153 Init Hosp L2
--- NOTE | 2023-08-08 16:40 | RAD_ITS ---
STUDY: X-RAY CHEST REASON FOR EXAM: Female, 63 years old. preop -- portable TECHNIQUE: Single frontal view of the chest. COMPARISON: None. FINDINGS: Bibasilar interstitial infiltrates. There is no demonstrated pleural abnormality. Normal size heart. Normal mediastinum and coty. Normal visualized pulmonary arteries. Normal visualized aortic arch and descending thoracic aorta. Normal visualized thoracic spine. Normal visualized ribs, clavicles, and shoulders. There is no demonstrated abnormality of the visualized soft tissue structures of the upper abdomen. RAD/Chest 1 View (Portable) IMPRESSION: Bibasilar interstitial infiltrates Electronically Signed: Javier Conner MD at 17:50 EST ,
[2023-08-08 16:53] LABS: Hemoglobin A1c 5.3 % (3.8-5.6)
[2023-08-08] MEDS: Lactated Ringers 1,000 ML 75 ML IV (17:49)
[2023-08-08] MEDS: Potassium Chloride Oral Tablet 20 MEQ 40 MEQ PO (17:52)
--- NOTE | 2023-08-08 18:13 | CON.PCM_ITS ---
Assessment & Plan Assessment/Plan (1) Closed displaced trimalleolar fracture of right ankle: QUALIFIERS: Encounter type: initial encounter Qualified Code(s): S82.851A - Displaced trimalleolar fracture of right lower leg, initial encounter for closed fracture PLAN: Exam performed Initial radiographs demonstrated laterally displaced trimalleolar ankle fracture Postreduction CT demonstrates adequate reduction of unstable trimalleolar ankle fracture Due to severity of injury will plan for open reduction internal fixation urgently to restore ambulatory function of the patient Current plan is for open reduction internal fixation on August 08. Will wait time from the OR. Discussed with patient that she is greater risk for healing complications due to smoking status. Due to urgent nature of the injury we will continue to proceed. Discussed inherent risks benefits and alternative treatments as well as course o f treatment. If there are any significant hemorrhagic fracture blistering will consider application of closed reduction and external fixation with a delta frame. This was discussed with patient as an alternative treatment. This may require a staged procedure return to OR weeks later. But at current plan is for definitive open reduction tomorrow. Will continue to follow patient closely. HPI Consult Data Date of Consult: 08/08/23 HPI Narrative HPI Narrative: MANNY POOLE, is a 63 F who presents with trimalleolar ankle fracture, unstable. ED felt patient too unstable to maintain nonweightbearing status and discharged home to prevent further injury. Patient states she was taking out her trash this morning when she suffered the ankle injury. She notes that her right ankle turned inward and she felt a popping and was unable to bear weight. Patient presented to the ED was confirmed to have suffered a displaced trimalleolar right ankle fracture. Patient underwent closed reduction with application of a splint within the emergency department. Due to concerns for patient's instability she was admitted. Patient's pain is well-controlled at current. Patient denies any constitutional or signs symptoms DVT. Patient is a current pack per day smoker [facility] Medical History Depression History of breast cancer Hypertension Osteopenia Smoker Home Medications citalopram 20 mg tablet (Celexa) 20 mg PO DAILY anxiety 08/16/16 [History Last Taken 08/08/23 08:16] hydrochlorothiazide 25 mg tablet 25 mg PO DAILY bp 08/08/23 [History Last Taken 08/08/23 08:17] Allergy/AdvReac Type Severity Reaction Status Date / Time No Known Allergies Allergy Verified 08/08/23 11:37 Family History no significant family his Surgical History H/O mastectomy Social History household members: none housing: house Smoking Status: Current every day smoker tobacco type: cigarettes alcohol intake: never substance use type: does not use ROS Constitutional Constitutional: Denies daytime sleepiness, difficulty sleeping or night sweats Eyes Eyes: Denies bloody eye, discharge from eye(s) or foreign body ENT HEENT: Denies change in voice, dental pain or foreign body in nose Cardiovascular Cardiovascular: Denies abdominal pain, arrhythmia on telemetry or clubbing Respiratory/Chest Respiratory/Chest: Denies change in phlegm color, chest congestion or dyspnea on exertion Gastrointestinal Gastrointestinal: Denies change in bowel habits, change in stool character or dyspepsia Genitourinary Genitourinary: Denies burning urination, change in libido or dysuria Musculoskeletal Musculoskeletal: Reports deformity and difficulty walking; Denies back pain or loss of height Physical Exam Narrative Splint left intact to right lower extremity Vascular: Capillary fill time brisk to all digits right foot. No evidence DVT. Dermatologic: Skin proximal and distal to splint intact. Neurologic: Light touch protective sensation intact to right lower extremity. 2 point discrimination intact to right lower extremity. Musculoskeletal: A range of motion palpation deferred due to unstable dislocated right ankle fracture status post closed reduction. Const alert and oriented x3 Lab / Micro Data 08/08/23 12:35 08/08/23 12:35 Labs: Laboratory Results - last 24 hr 08/08/23 12:35: WBC 10.0, RBC 4.49, Hgb 14.9, Hct 40.4, MCV 90.0, MCH 33.2 H, MCHC 36.9 H, RDW Std Deviation 37.9, RDW Coeff of Vandana 11.6, Plt Count 242, MPV 9.3, Immature Gran % (Auto) 0.400, Neut % (Auto) 84.5 H, Lymph % (Auto) 8.0 L, [place] % (Auto) 6.9, Eos % (Auto) 0.1, Baso % (Auto) 0.1, Absolute Neuts (auto) 8.4 H, Absolute Lymphs (auto) 0.80 L, Nucleated RBC % 0, Sodium 125 L, Potassium 3.2 L, Chloride 91 L, Carbon Dioxide 25.0, Anion Gap 9, BUN 9, Creatinine 0.83, Estim Creat Clear Calc 70.31, Est GFR (MDRD) Af Amer 89, Est GFR (MDRD) Non-Af 74, BUN/Creatinine Ratio 10.8, Glucose 141 H, Hemoglobin A1c 5.3, Calcium 9.5, Total Creatine Kinase 394 H Imaging Radiology Impression Ankle X-Ray 08/08/23 11:55 IMPRESSION: Fracture of the medial malleolus of the distal tibia, with 1.3 cm lateral displacement. Fracture of the distal fibula with lateral angulation. 1.3 cm lateral subluxation of the talus with respect to the distal tibia. Soft tissue swelling overlying the lateral malleolus. Electronically Signed: Dick Ha MD at 12:14 EST , Lower Extremity CT 08/08/23 14:11 IMPRESSION: Trimalleolar fracture-subluxation of the right ankle with improved alignment status post closed reduction. Electronically Signed: Belen Willis MD at 15:02 EST , Chest X-Ray 08/08/23 16:40 IMPRESSION: Bibasilar interstitial infiltrates Electronically Signed: Javier Conner MD at 17:50 EST ,
[2023-08-08] MEDS: oxyCODONE 5 MG Tablet PO (19:41)
[2023-08-08 21:21] LABS: Anion Gap 5 (5-15); BUN 10 mg/dL (7-18); BUN/Creat Ratio 15.2 RATIO (10-20); Calcium,Total 8.7 mg/dL (8.5-10.1); Chloride 99 mmol/L (98-107); Creatinine, Serum 0.66 mg/dL (0.55-1.02); EST Glomerular Filtration Rate 97 mL/min (>60); Est Glom Filt Rate - Afr Amer 117 mL/min (>60); Estimated Creatinine Clearance 86.27 ml/min; Glucose 104 mg/dL (74-106); Potassium 2.9 mmol/L (3.5-5.1); Sodium Level 132 mmol/L (136-145)
[2023-08-08] MEDS: Acetaminophen 500 MG Tablet 1000 MG PO (21:44)
[2023-08-09] VITALS (13 sets, daily range): BP systolic 99–143; BP diastolic 42–72; PULSE 71–94; RESP 14–18; TEMP 36.6–37.2; O2SAT 93–100; BMI 26.2; BMI 26.3
--- NOTE | 2023-08-09 05:00 | EKG12_ITS ---
Test Reason : AM EKG Blood Pressure : / mmHG Vent. Rate : 074 BPM Atrial Rate : 074 BPM P-R Int : 140 ms QRS Dur : 084 ms QT Int : 406 ms P-R-T Axes : 063 022 027 degrees QTc Int : 450 ms Normal sinus rhythm Nonspecific T wave abnormality Abnormal ECG When compared with ECG of 08-AUG-2023 16:20, MANUAL COMPARISON REQUIRED, DATA IS UNCONFIRMED Confirmed by Josef Bran ([id number]), city editor ALLY MANCILLA ([id number]) on 08/09/2023 2:21:51 PM Referred By: RU Confirmed By:Josef Bran
[2023-08-09 05:57] LABS: Absolute Lymphocyte Count 1.57 X10^3/uL (0.83-4.51); Absolute Neutrophil Count 3.6 X10^3/uL (2.0-7.7); Basophil# 0.02 X10^3/uL; Basophil% 0.3 % (0-1); Eosinophil# 0.06 X10^3/uL; Hematocrit 36.1 % (37-47); Hemoglobin 12.7 g/dL (12.0-15.0); Lymphocyte # 1.57 X10^3/ul (0.83-4.51); Lymphocyte % 26.9 % (19-41); Mean Corp Hgb Conc 35.2 g/dL (32-36); Mean Corpuscular Hgb 32.5 pg (27.0-32.0); Mean Corpuscular Volume 92.3 fL (81-99); Mean Platelet Vol. 9.8 fl (6.2-12.0); Monocyte# 0.55 X10^3/uL; Monocyte% 9.4 % (0-10); NRBC Flagged by Analyzer 0 % (0-5); Neutrophil # 3.61 X10^3/uL (2.7-7.7); Neutrophil % 62.1 % (47-70); Platelet Count 211 K/mm3 (150-450); RBC Distribution Width CV 11.9 % (11.6-14.6); RBC Distribution Width SD 40.3 fl (35.1-43.9); Red Blood Count 3.91 M/mm3 (4.2-5.4); White Blood Count 5.8 K/mm3 (4.4-11.0)
[2023-08-09] MEDS: Acetaminophen 500 MG Tablet 1000 MG PO ×3 (06:06→21:05)
[2023-08-09] MEDS: Lactated Ringers 1,000 ML 75 ML IV (06:07)
[2023-08-09 07:09] LABS: ALB/GLOB Ratio 0.9 RATIO (0.9-2.4); AST(SGOT) 25 U/L (15-37); Alanine Aminotransfer ALT/SGPT 22 U/L (13-56); Alkaline Phosphatase 78 U/L (45-117); Anion Gap 7 (5-15); BUN 9 mg/dL (7-18); BUN/Creat Ratio 15.1 RATIO (10-20); Calcium,Total 8.9 mg/dL (8.5-10.1); Chloride 104 mmol/L (98-107); EST Glomerular Filtration Rate 109 mL/min (>60); Est Glom Filt Rate - Afr Amer 131 mL/min (>60); Estimated Creatinine Clearance 94.29 ml/min; Globulin 3.2 g/dL (2.2-4.2); Glucose 95 mg/dL (74-106); Magnesium 2.1 mg/dL (1.6-2.6); Phosphorus 2.1 mg/dL (2.5-4.9); Potassium 3.6 mmol/L (3.5-5.1); Protein, Total 6.2 g/dL (6.4-8.2); Sodium Level 139 mmol/L (136-145); Thyroid Stim Hormone (TSH) 2.68 uIU/mL (0.358-3.74)
--- NOTE | 2023-08-09 07:15 | RAD_ITS ---
STUDY: X-RAY - RIGHT ANKLE REASON FOR EXAM: Female, 63 years old. ORIF TRIMALLEOLAR FX TECHNIQUE: 4 intraoperative spot films of the right ankle. COMPARISON: Right ankle radiographs dated 08/08/2023. FINDINGS: There is new ORIF hardware with plate and screws along the distal fibula as well as 2 syndesmotic tightrope endobuttons in the distal tibia. There is anatomic alignment of the distal tibia, distal fibula, and tibiotalar joint. Normal visualized talus and calcaneus. There is soft tissue swelling overlying the medial and lateral malleolus. RAD/Ankle min 3 Views IMPRESSION: New ORIF hardware with anatomic alignment of the right ankle. Electronically Signed: Dick Ha MD at 14:14 EST ,
--- NOTE | 2023-08-09 07:38 | PN.HOSP_ITS ---
Reason for Visit Reason for Visit: Diagnoses Hypo-osmolality and hyponatremia (08/08/23) Hypokalemia (08/08/23) Hyperglycemia, unspecified (08/08/23) Displaced trimalleolar fracture of right lower leg, initial encounter for closed fracture (08/08/23) Displaced trimalleolar fracture of unspecified lower leg, initial encounter for closed fracture (08/08/23) Unspecified fall, initial encounter (08/08/23) Objective Data Objective Data Vital Signs: Vital Signs Temp Pulse Resp BP Pulse Ox O2 Del Method O2 Flow Rate 98.1 F 74 16 99/42 L 97 Room Air 2 08/09/23 02:35 08/09/23 02:35 08/09/23 02:35 08/09/23 02:35 08/09/23 02:35 08/09/23 02:35 08/08/23 14:17 Oxygen Flow Rate (L/min) [7] 2 Oxygen Flow Rate (L/min) [6] 2 Oxygen Flow Rate (L/min) [5] 2 Oxygen Flow Rate (L/min) [4] 2 Oxygen Flow Rate (L/min) [3] 2 Oxygen Flow Rate (L/min) [2] 2 Oxygen Flow Rate (L/min) [1 ( 2 Initial Baseline)] Oxygen Flow Rate (L/min) 2 Oxygen Delivery Method [7] Nasal Cannula Oxygen Delivery Method [6] Nasal Cannula Oxygen Delivery Method [5] Nasal Cannula Oxygen Delivery Method [4] Nasal Cannula Oxygen Delivery Method [3] Nasal Cannula Oxygen Delivery Method [2] Nasal Cannula Oxygen Delivery Method [1 ( Nasal Cannula Initial Baseline)] Oxygen Delivery Method Room Air Weight: 153 lb 7.068 oz Body Mass Index (BMI) 26.2 Intake & Output: Intake and Output for Last 24 Hours 08/07/23 08/08/23 08/09/23 23:59 23:59 23:59 Intake Total 922.5 / 922.5 Output Total 800 / 800 1650 / 1650 Balance -800 / -800 -727.5 / -727.5 Lab / Micro Data 08/09/23 05:09 08/09/23 05:09 Labs: Laboratory Results - last 24 hr 08/08/23 12:35: WBC 10.0, RBC 4.49, Hgb 14.9, Hct 40.4, MCV 90.0, MCH 33.2 H, MCHC 36.9 H, RDW Std Deviation 37.9, RDW Coeff of Vandana 11.6, Plt Count 242, MPV 9.3, Immature Gran % (Auto) 0.400, Neut % (Auto) 84.5 H, Lymph % (Auto) 8.0 L, [place] % (Auto) 6.9, Eos % (Auto) 0.1, Baso % (Auto) 0.1, Absolute Neuts (auto) 8.4 H, Absolute Lymphs (auto) 0.80 L, Nucleated RBC % 0, Sodium 125 L, Potassium 3.2 L, Chloride 91 L, Carbon Dioxide 25.0, Anion Gap 9, BUN 9, Creatinine 0.83, Estim Creat Clear Calc 70.31, Est GFR (MDRD) Af Amer 89, Est GFR (MDRD) Non-Af 74, BUN/Creatinine Ratio 10.8, Glucose 141 H, Hemoglobin A1c 5.3, Calcium 9.5, Total Creatine Kinase 394 H 08/08/23 20:55: Sodium 132 L, Potassium 2.9 L, Chloride 99, Carbon Dioxide 28.0, Anion Gap 5, BUN 10, Creatinine 0.66, Estim Creat Clear Calc 86.27, Est GFR (MDRD) Af Amer 117, Est GFR (MDRD) Non-Af 97, BUN/Creatinine Ratio 15.2, Glucose 104, Calcium 8.7 08/09/23 05:09: WBC 5.8, RBC 3.91 L, Hgb 12.7, Hct 36.1 L, MCV 92.3, MCH 32.5 H, MCHC 35.2, RDW Std Deviation 40.3, RDW Coeff of Vandana 11.9, Plt Count 211, MPV 9.8, Immature Gran % (Auto) 0.300, Neut % (Auto) 62.1, Lymph % (Auto) 26.9, [place] % (Auto) 9.4, Eos % (Auto) 1.0, Baso % (Auto) 0.3, Absolute Neuts (auto) 3.6, Absolute Lymphs (auto) 1.57, Nucleated RBC % 0, Sodium 139, Potassium 3.6, Chloride 104, Carbon Dioxide 28.0, Anion Gap 7, BUN 9, Creatinine 0.60, Estim Creat Clear Calc 94.29, Est GFR (MDRD) Af Amer 131, Est GFR (MDRD) Non-Af 109, BUN/Creatinine Ratio 15.1, Glucose 95, Calcium 8.9, Phosphorus 2.1 L, Magnesium 2.1, Total Bilirubin 0.80, AST 25, ALT 22, Alkaline Phosphatase 78, Total Protein 6.2 L, Albumin 3.0 L, Globulin 3.2, Albumin/Globulin Ratio 0.9, TSH 2.68 Radiography Diagnostic Testing: Radiology Impression Ankle X-Ray 08/08/23 11:55 IMPRESSION: Fracture of the medial malleolus of the distal tibia, with 1.3 cm lateral displacement. Fracture of the distal fibula with lateral angulation. 1.3 cm lateral subluxation of the talus with respect to the distal tibia. Soft tissue swelling overlying the lateral malleolus. Electronically Signed: Dick Ha MD at 12:14 EST , Lower Extremity CT 08/08/23 14:11 IMPRESSION: Trimalleolar fracture-subluxation of the right ankle with improved alignment status post closed reduction. Electronically Signed: Belen Willis MD at 15:02 EST , Chest X-Ray 08/08/23 16:40 IMPRESSION: Bibasilar interstitial infiltrates Electronically Signed: Javier Conner MD at 17:50 EST , Physical Exam Narrative Seen and examined. Patient is stated she was walking but fell down resulting into right ankle fracture. Physical exam General: Alert, Oriented x3, Cooperative HEENT: Atraumatic, PERRLA, EOMI, Normocephalic Oral: Oral mucosa moist. No Gingival or Mucosal Lesions/ Ulcerations Neck: Supple, No JVD, Negative Carotid Bruits Chest wall/Lungs: Air entry diminished in bilateral lung bases. No crepitation/rhonchi Cardiovascular: Regular rate, Regular Rhythm, Normal S1, Normal S2, No M/G/R Abdomen: Bowel Sounds Present, Soft, Non Tender, Non-Distended : No dysuria. No renal angle tenderness. No suprapubic tenderness. Extremities: No edema, Capillary Refill Less than 3 Seconds Skin: No rashes, No breakdown Musculoskeletal: Right ankle is wrapped. Swelling around the right ankle region, fracture site. Tenderness and swelling present around right ankle. Neurological: Cranial nerves II-XII grossly intact, DTR 2+/4. No acute focal neurological deficit. Psych/Mental Status: Normal Affect, Appropriate. Assessment & Plan Assessment/Plan (1) Acute hyponatremia: (2) Fall: (3) Closed trimalleolar fracture of ankle: (4) Hypokalemia: (5) Hyperglycemia: PLAN: Plan 63-year-old female admitted after she fell down while she was taking her trash out. She stepped on uneven surface, rolled her ankle fell down with severe pain and unable to bear weight. 1. Right ankle closed trimalleolar fracture -Status post closed reduction in the ED. Postreduction CT shows improved alignment. Dr. Rodriguez has been notified and consulted and patient is going for surgery today. -Scheduled Tylenol -As needed oxycodone -As needed IV Dilaudid - scheduled Colace -As needed senna -PT/OT consultation for postoperative assistance Chest x-ray shows bilateral interstitial infiltrate. Does not look like acute abnormality. No hypoxia 2. Acute hypokalemia -40 mill equivalents p.o. potassium. Repeat labs shows potassium at low normal, 3.6. Serum magnesium normal. Phosphorus 2.1. Patient started on Neutra-Phos. 3. hyponatremia unclear whether acute or chronic but most likely chronic due to HCTZ as we have no recent labs here -Most recent sodium was 136 in 2017 -Hold hydrochlorothiazide -continue citalopram for now but this also could be contributing -Repeat sodium 139. Hyponatremia resolved. TSH 2.68. Cortisol high at 24.6. Mechanical fall with resultant right trimalleolar fracture -Related to unlevel footing -PT/OT consultation History of breast cancer -Currently in remission -Status post bilateral radical mastectomy Hypertension -Hold home hydrochlorothiazide -As needed hydralazine for systolic greater than 160 -Monitor blood pressure Depression -Continue home citalopram for now but could consider discontinuing if sodium does not improve Tobacco abuse -Recommend cessation -Nicotine patch made available at 21 mcg as patient smokes about a pack a day DVT prophylaxis -Subcu Lovenox daily CODE STATUS -Full code is verified on admission Laboratory Results 08/08/23 12:35: Hemoglobin A1c 5.3 08/08/23 20:55: Sodium 132 L, Potassium 2.9 L, Chloride 99, Carbon Dioxide 28.0, Anion Gap 5, BUN 10, Creatinine 0.66, Estim Creat Clear Calc 86.27, Est GFR (MDRD) Af Amer 117, Est GFR (MDRD) Non-Af 97, BUN/Creatinine Ratio 15.2, Glucose 104, Calcium 8.7 08/09/23 05:09: WBC 5.8, RBC 3.91 L, Hgb 12.7, Hct 36.1 L, MCV 92.3, MCH 32.5 H, MCHC 35.2, RDW Std Deviation 40.3, RDW Coeff of Vandana 11.9, Plt Count 211, MPV 9.8, Immature Gran % (Auto) 0.300, Neut % (Auto) 62.1, Lymph % (Auto) 26.9, [place] % (Auto) 9.4, Eos % (Auto) 1.0, Baso % (Auto) 0.3, Absolute Neuts (auto) 3.6, Absolute Lymphs (auto) 1.57, Nucleated RBC % 0, Sodium 139, Potassium 3.6, Chloride 104, Carbon Dioxide 28.0, Anion Gap 7, BUN 9, Creatinine 0.60, Estim Creat Clear Calc 94.29, Est GFR (MDRD) Af Amer 131, Est GFR (MDRD) Non-Af 109, BUN/Creatinine Ratio 15.1, Glucose 95, Calcium 8.9, Phosphorus 2.1 L, Magnesium 2.1, Total Bilirubin 0.80, AST 25, ALT 22, Alkaline Phosphatase 78, Total Protein 6.2 L, Albumin 3.0 L, Globulin 3.2, Albumin/Globulin Ratio 0.9, TSH 2.68, Cortisol 24.60 H Clinical Impression(s) from Imaging Studies Ankle X-Ray 08/08/23 11:55 IMPRESSION: Fracture of the medial malleolus of the distal tibia, with 1.3 cm lateral displacement. Fracture of the distal fibula with lateral angulation. 1.3 cm lateral subluxation of the talus with respect to the distal tibia. Soft tissue swelling overlying the lateral malleolus. Electronically Signed: Dick Ha MD at 12:14 EST , Lower Extremity CT 08/08/23 14:11 IMPRESSION: Trimalleolar fracture-subluxation of the right ankle with improved alignment status post closed reduction. Electronically Signed: Belen Willis MD at 15:02 EST , Chest X-Ray 08/08/23 16:40 IMPRESSION: Bibasilar interstitial infiltrates Electronically Signed: Javier Conner MD at 17:50 EST , Charges/Coding Visit Charges Inpatient E&M: 02183 Subs Hosp L2
[2023-08-09] MEDS: Lactated Ringers 1,000 ML 999 ML IV (08:07)
[2023-08-09] MEDS: Lactated Ringers 1,000 ML 100 ML IV ×2 (09:09→23:09)
--- NOTE | 2023-08-09 09:21 | CASEMGMT ---
DONI BLEVINS Assessment Face to Face with patient for initial transition planning/care coordination assessment. DONI BLEVINS introduced self and role at [facility], pt voices understanding. Pt is A&Ox4 and is resting comfortably in bed and is calm. Care providers, pharmacy, and demographics verified. Admitting dx: R Trimalleolar Fx LACE Strata: 2 PCP: [facility] Specialists: Pt states history with Dr. Barrientos but states that she was cleared and does not need to see anymore Preferred Pharmacy: [facility] Insurance: MMO Prescription Benefit: Yes LNOK: Gabby Burnett (Mother) Living Arrangements: Pt lives alone in a single story home with a BM without HR and 2 steps to enter the home with HR and no issues normally. ADLs/IADLs: Normally independent Transportation: Pt drives. Pt states that her mother or brother will drive her home from the hospital DME: Pt states that she has a WC, walker, cane, extended tub bench, GB in shower, and a raised toilet seat with GB HHC/SNF: Denies history Pt?s goal: Home Plan: TBD. Pt is scheduled for surgery today. Pt will be seen by therapy after. Pt states that she does not want to go to a SNF at this time. Pt states that she wants to wait and see how she does with therapy before going about setting up HHC or OP therapy. FELICITY to follow for safe DC home. Charisse Hill RN, CM
[2023-08-09] MEDS: Cefazolin 2 GM in 0.9% Normal Saline (100mL Bag) 100 ML IV (12:10)
[2023-08-09] MEDS: Bacitracin 500 UNITS/GM PACKET (13:59)
--- NOTE | 2023-08-09 14:22 | OP.PCM_ITS ---
Problems Associated Problem List Diagnoses (1) Closed displaced trimalleolar fracture of right ankle: Report of Operation Date of Procedure: 08/09/23 Pre-Operative Diagnosis: Closed displaced trimalleolar right ankle fracture Post-Operative Diagnosis: Same Surgery/Procedure Performed:: 1. Open reduction internal fixation right trimalleolar ankle fracture 2. Application of AO splint right lower extremity Description of Surgical Findings:: Patient suffered a trimalleolar ankle fracture turning her ankle walking her driveway with the trash can. Patient was taken to the emergency room where she underwent closed reduction with application of splint. CT confirmed trimalleolar ankle fracture with continued instability of the ankle. Discussed with patient performing closed reduction with external fixation versus open reduction internal fixation depending on evaluation soft tissue envelope. Today to soft tissue envelope was noted be intact with controlled edema and no obvious fracture blisters. Definitive ORIF was performed today. Surgeon: Pacheco Rodriguez otr owner operator truck driver: None ([email or web address]) Type of Anesthesia: General Special Medications: Patient received popliteal block preoperatively per anesthesia Specimen's removed: None Drains: None Estimated Blood Loss (mL): 20 cc Description of Procedure: Patient brought back to the operating placed comfortably supine position under. Patient induced under general anesthesia. All osseous prominences offloaded prevent any compression neuropraxia's. Well-padded right thigh tourniquet applied. Right lower extremity was positioned with a hip bump to knock on external rotation and blankets to elevate relative the contralateral limb for fluoroscopic imaging. Patient's right lower extremity scrubbed prepped draped using typical aseptic fashion. Procedure #1 open reduction internal fixation right trimalleolar ankle fracture: Initially preoperatively the ankle joint and syndesmosis were marked out anterio rly using fluoroscopic guidance as well as the distal aspect of the fifth fibula and medial malleolus for incision placement using lateral fluoroscopic imaging. Once cleared by anesthesia right lower extremity was elevated exsanguinated tourniquet was inflated to 300 mmHg. A direct lateral incision was made along the distal fibula through the epidermis dermis into subcutaneous tissue. Any bleeders are identified cauterized at this time. Blunt dissection was taken down to level of deep fascia. A full- thickness deep fascial periosteal incision was made with a 15 blade and additional periosteal dissection was performed using a armstrong periosteal elevator. Again any bleeders identified cauterized and important neurovascular structures were identified and protected with gentle blunt retraction. Deep fibular fracture was noted to be identified and any interpositional hematoma tissue was curetted out of the site was flushed with copious amounts of normal sterile saline. The fibula was then reduced and held in a reduced position with bone reduction forceps. This was confirmed with fluoroscopic imaging restoring the fibular length D rotating it from external rotation which in turn due to the fact there was a dominant fracture reduced the majority of the other fractures. This held in place with bone reduction forceps. Due to some bone loss anteriorly decision was made to avoid interfragmentary compression with a screw. After reduction a lateral locking plate was applied using manufactures guidelines to the fibula with combination of locking and nonlocking screws. Again fluoroscopic imaging was confirmed to use adequate hardware placement and adequate reduction of the ankle joint. Once this was performed reduction of the distal tibiofibular syndesmosis was performed to allow for stabilization of the posterior malleolus fracture and distal tibiofibular syndesmosis. Should be noted that intraoperatively stress testing with dorsiflexion external rotation stressing was performed of the distal tibiofibular syndesmosis and there is noted to be instability at the that joint. 2 cinch fix and 2 suture buttons were placed across the April plate from lateral to medial from the fibula to the medial cortex of the tibia with adequate tensioning stabilizing the distal tibiofibular syndesmosis which in turn stabilizes the posterior malleolus fracture. Next a small linear incision was made directly over the medial incision in an axial direction through the epidermis dermis into subcutaneous tissue with a 15 blade. Any bleeders identified cauterized neurovascular str uctures identified and protected with blunt retraction. Deep fascial periosteal incision was made and blunt dissection was taken to identify the medial malleolus fracture which was then curetted and removed well any nonviable tissue then placed in a reduced position and pinned with guidewires for 240 partially- threaded cannulated medial malleolar screws from April set. Using confirmation of multiple fluoroscopic views the screws were placed and noted to be 44 mm in length. At this time final fluoroscopic images were taken and anatomic reduction of the ankle was noted to be performed. Bone void anterior distal fibula was packed with demineralized bone matrix from [employer] set. Tourniquet was let down, total tourniquet time was 76 minutes. Any bleeders identified cauterized. All incisional sites flushed with copious ekaterina normal sterile saline. Deep closure performed with running interlocking 3-0 Vicryl to all incisional sites. Subcutaneous closure performed with simple interrupted buried 3-0 Vicryl. Skin closure performed with mendez. Incisional sites dressed with bacitracin Adaptic 4 x 4's Kerlix and a Moon compression dressing. Procedure #2 application of AO splint right lower extremity Upon completion of the dressing the foot and ankle were held with the hip knee and ankle at 90 degrees in neutral subtalar joint position. An AO splint was then applied to the right lower extremity holding the foot in rectus alignment. Patient was transferred to PACU vital signs stable and vascular status intact all digits for further monitoring prior to transfer back to floor. Patient will likely require SNF placement due to the fact that she lives alone and difficulty maintaining nonweightbearing status due to her muscular strength. Grafts/Implants Used: [employer] demineralized bone matrix, Vitoss, [place] plates and screws Complications None Admit VTE Documentation VTE Present on Admission: Yes VTE Pharm Prophylaxis ordered?: Yes
[2023-08-09 14:46] LABS: Bedside Glucose 103 mg/dL (74-106)
[2023-08-09] MEDS: Na Biphos/Potassium Phosphate PACKET 1 PACKET PO ×2 (16:14→21:05)
[2023-08-09] MEDS: oxyCODONE 5 MG Tablet PO (19:44)
[2023-08-09] MEDS: Citalopram 20 MG Tablet PO (19:44)
[2023-08-09] MEDS: Docusate Sodium 100 MG Capsule PO (21:05)
[2023-08-09] MEDS: Morphine 2 MG/ML Syringe IV (21:09)
[2023-08-10] MEDS: oxyCODONE 5 MG Tablet PO ×4 (01:05→14:33)
[2023-08-10] MEDS: Morphine 2 MG/ML Syringe IV ×2 (02:18→08:29)
[2023-08-10] MEDS: Acetaminophen 500 MG Tablet 1000 MG PO ×2 (05:07→14:33)
[2023-08-10] MEDS: Na Biphos/Potassium Phosphate PACKET 1 PACKET PO ×2 (05:07→14:33)
[2023-08-10 05:54] VITALS: BP 153/66; PULSE 87; RESP 16; TEMP 36.6; O2SAT 95
[2023-08-10 05:56] VITALS: BMI 26.4
[2023-08-10 06:14] LABS: Absolute Lymphocyte Count 0.75 X10^3/uL (0.83-4.51); Absolute Neutrophil Count 6.5 X10^3/uL (2.0-7.7); Basophil# 0.03 X10^3/uL; Basophil% 0.4 % (0-1); Eosinophil# 0.03 X10^3/uL; Eosinophils% 0.4 % (0-5); Hematocrit 35.4 % (37-47); Hemoglobin 11.9 g/dL (12.0-15.0); Lymphocyte # 0.75 X10^3/ul (0.83-4.51); Lymphocyte % 9.3 % (19-41); Mean Corp Hgb Conc 33.6 g/dL (32-36); Mean Corpuscular Hgb 32.2 pg (27.0-32.0); Mean Corpuscular Volume 95.9 fL (81-99); Mean Platelet Vol. 9.7 fl (6.2-12.0); Monocyte# 0.69 X10^3/uL; Monocyte% 8.6 % (0-10); NRBC Flagged by Analyzer 0 % (0-5); Neutrophil # 6.52 X10^3/uL (2.7-7.7); Neutrophil % 80.9 % (47-70); Platelet Count 184 K/mm3 (150-450); RBC Distribution Width CV 12.2 % (11.6-14.6); RBC Distribution Width SD 42.9 fl (35.1-43.9); Red Blood Count 3.69 M/mm3 (4.2-5.4); White Blood Count 8.1 K/mm3 (4.4-11.0)
[2023-08-10 06:30] LABS: Anion Gap 5 (5-15); BUN 6 mg/dL (7-18); BUN/Creat Ratio 10.9 RATIO (10-20); Calcium,Total 8.3 mg/dL (8.5-10.1); Chloride 107 mmol/L (98-107); Creatinine, Serum 0.55 mg/dL (0.55-1.02); EST Glomerular Filtration Rate 120 mL/min (>60); Est Glom Filt Rate - Afr Amer 145 mL/min (>60); Glucose 115 mg/dL (74-106); Potassium 3.8 mmol/L (3.5-5.1); Sodium Level 140 mmol/L (136-145)
[2023-08-10 07:40] VITALS: O2SAT 96
[2023-08-10] MEDS: 0.9% Saline Lock 10 ML Syringe IV (08:29)
[2023-08-10] MEDS: Docusate Sodium 100 MG Capsule PO (08:33)
[2023-08-10] MEDS: Enoxaparin 40 MG/0.4 ML Syringe SC (08:33)
[2023-08-10] MEDS: Citalopram 20 MG Tablet PO (08:34)
[2023-08-10 10:38] VITALS: BP 142/60; PULSE 82; RESP 16; TEMP 36.6; O2SAT 98
--- NOTE | 2023-08-10 12:35 | PCM.PROGNOTE ---
Subjective Subjective 63-year-old female 1 day postop right ankle fracture ORIF. Patient denies constitutional symptoms. Patient pain controlled at current. Patient denies any chest pain calf pain shortness of breath. No other complaints at current. Patient voiding urine passing gas. Objective Data Objective Data Vital Signs: Vital Signs Temp Pulse Resp BP Pulse Ox O2 Del Method O2 Flow Rate 98 F 82 16 142/60 H 98 Room Air 2 08/10/23 10:38 08/10/23 10:38 08/10/23 10:38 08/10/23 10:38 08/10/23 10:38 08/10/23 10:38 08/10/23 07:40 Oxygen Flow Rate (L/min) [7] 2 Oxygen Flow Rate (L/min) [6] 2 Oxygen Flow Rate (L/min) [5] 2 Oxygen Flow Rate (L/min) [4] 2 Oxygen Flow Rate (L/min) [3] 2 Oxygen Flow Rate (L/min) [2] 2 Oxygen Flow Rate (L/min) [1 ( 2 Initial Baseline)] Oxygen Flow Rate (L/min) 2 Oxygen Delivery Method [7] Nasal Cannula Oxygen Delivery Method [6] Nasal Cannula Oxygen Delivery Method [5] Nasal Cannula Oxygen Delivery Method [4] Nasal Cannula Oxygen Delivery Method [3] Nasal Cannula Oxygen Delivery Method [2] Nasal Cannula Oxygen Delivery Method [1 ( Nasal Cannula Initial Baseline)] Oxygen Delivery Method Room Air Weight: 70.1 kg Body Mass Index (BMI) 26.4 Intake & Output: Intake and Output for Last 24 Hours 08/08/23 08/09/23 08/10/23 23:59 23:59 23:59 Intake Total 3668.33 / 3668.33 1400 / 1400 Output Total 800 / 800 1950 / 2450 1000 / 1000 Balance -800 / -800 1718.33 / 1218.33 400 / 400 Lab / Micro Data 08/10/23 05:35 08/10/23 05:35 Labs: Laboratory Results - last 24 hr 08/09/23 14:28: POC Glucose 103 08/10/23 05:35: WBC 8.1, RBC 3.69 L, Hgb 11.9 L, Hct 35.4 L, MCV 95.9, MCH 32.2 H, MCHC 33.6, RDW Std Deviation 42.9, RDW Coeff of Vandana 12.2, Plt Count 184, MPV 9.7, Immature Gran % (Auto) 0.400, Neut % (Auto) 80.9 H, Lymph % (Auto) 9.3 L, [place] % (Auto) 8.6, Eos % (Auto) 0.4, Baso % (Auto) 0.4, Absolute Neuts (auto) 6.5, Absolute Lymphs (auto) 0.75 L, Nucleated RBC % 0, Sodium 140, Potassium 3.8, Chloride 107, Carbon Dioxide 28.0, Anion Gap 5, BUN 6 L, Creatinine 0.55, Estim Creat Clear Calc 103.20, Est GFR (MDRD) Af Amer 145, Est GFR (MDRD) Non-Af 120, BUN/Creatinine Ratio 10.9, Glucose 115 H, Calcium 8.3 L Radiography Diagnostic Testing: Radiology Impression Ankle X-Ray 08/09/23 07:15 IMPRESSION: New ORIF hardware with anatomic alignment of the right ankle. Electronically Signed: Dick aH MD at 14:14 EST Reading Location ID and State: [facility] / [place] , Service support , Physical Exam Narrative Splint intact right lower extremity. Neurovascular status intact proximal and distal dressing. Patient able to actively move digits to right lower extremity. No sign DVT. Const alert and oriented x3 Assessment & Plan Assessment/Plan (1) Closed displaced trimalleolar fracture of right ankle: QUALIFIERS: Encounter type: initial encounter Qualified Code(s): S82.851A - Displaced trimalleolar fracture of right lower leg, initial encounter for closed fracture PLAN: Exam performed Patient to be nonweightbearing for 2 to 4 weeks then transition to cam walking boot Splint left intact today with remain intact for 1 week Recommend Lovenox on discharge for DVT prophylaxis Patient will follow-up with me 1 week in outpatient setting in my office If patient is discharged home if deemed safe by physical therapy patient stable for DC today; otherwise, will require SNF placement.
--- NOTE | 2023-08-10 13:09 | PN.HOSP_ITS ---
Reason for Visit Reason for Visit: Diagnoses Hypo-osmolality and hyponatremia (08/08/23) Hypokalemia (08/08/23) Other acute postprocedural pain (08/08/23) Hyperglycemia, unspecified (08/08/23) Displaced trimalleolar fracture of right lower leg, initial encounter for closed fracture (08/08/23) Displaced trimalleolar fracture of unspecified lower leg, initial encounter for closed fracture (08/08/23) Unspecified fall, initial encounter (08/08/23) Objective Data Objective Data Vital Signs: Vital Signs Temp Pulse Resp BP Pulse Ox O2 Del Method O2 Flow Rate 98 F 82 16 142/60 H 98 Room Air 2 08/10/23 10:38 08/10/23 10:38 08/10/23 10:38 08/10/23 10:38 08/10/23 10:38 08/10/23 10:38 08/10/23 07:40 Oxygen Flow Rate (L/min) [7] 2 Oxygen Flow Rate (L/min) [6] 2 Oxygen Flow Rate (L/min) [5] 2 Oxygen Flow Rate (L/min) [4] 2 Oxygen Flow Rate (L/min) [3] 2 Oxygen Flow Rate (L/min) [2] 2 Oxygen Flow Rate (L/min) [1 ( 2 Initial Baseline)] Oxygen Flow Rate (L/min) 2 Oxygen Delivery Method [7] Nasal Cannula Oxygen Delivery Method [6] Nasal Cannula Oxygen Delivery Method [5] Nasal Cannula Oxygen Delivery Method [4] Nasal Cannula Oxygen Delivery Method [3] Nasal Cannula Oxygen Delivery Method [2] Nasal Cannula Oxygen Delivery Method [1 ( Nasal Cannula Initial Baseline)] Oxygen Delivery Method Room Air Weight: 154 lb 8.705 oz Body Mass Index (BMI) 26.4 Intake & Output: Intake and Output for Last 24 Hours 08/08/23 08/09/23 08/10/23 23:59 23:59 23:59 Intake Total 3668.33 / 3668.33 1400 / 1400 Output Total 800 / 800 1950 / 2450 1000 / 1000 Balance -800 / -800 1718.33 / 1218.33 400 / 400 Lab / Micro Data 08/10/23 05:35 08/10/23 05:35 Labs: Laboratory Results - last 24 hr 08/09/23 14:28: POC Glucose 103 08/10/23 05:35: WBC 8.1, RBC 3.69 L, Hgb 11.9 L, Hct 35.4 L, MCV 95.9, MCH 32.2 H, MCHC 33.6, RDW Std Deviation 42.9, RDW Coeff of Vnadana 12.2, Plt Count 184, MPV 9.7, Immature Gran % (Auto) 0.400, Neut % (Auto) 80.9 H, Lymph % (Auto) 9.3 L, [place] % (Auto) 8.6, Eos % (Auto) 0.4, Baso % (Auto) 0.4, Absolute Neuts (auto) 6.5, Absolute Lymphs (auto) 0.75 L, Nucleated RBC % 0, Sodium 140, Potassium 3.8, Chloride 107, Carbon Dioxide 28.0, Anion Gap 5, BUN 6 L, Creatinine 0.55, Estim Creat Clear Calc 103.20, Est GFR (MDRD) Af Amer 145, Est GFR (MDRD) Non-Af 120, BUN/Creatinine Ratio 10.9, Glucose 115 H, Calcium 8.3 L Radiography Diagnostic Testing: Radiology Impression Ankle X-Ray 08/09/23 07:15 IMPRESSION: New ORIF hardware with anatomic alignment of the right ankle. Electronically Signed: Dick Ha MD at 14:14 EST , Physical Exam Narrative Seen and examined. Patient is stated she was walking but fell down resulting into right ankle fracture. Had ORIF for seizure on 08/09/2023 Physical exam General: Alert, Oriented x3, Cooperative HEENT: Atraumatic, PERRLA, EOMI, Normocephalic Oral: Oral mucosa moist. No Gingival or Mucosal Lesions/ Ulcerations Neck: Supple, No JVD, Negative Carotid Bruits Chest wall/Lungs: Air entry diminished in bilateral lung bases. No crepitation/rhonchi Cardiovascular: Regular rate, Regular Rhythm, Normal S1, Normal S2, No M/G/R Abdomen: Bowel Sounds Present, Soft, Non Tender, Non-Distended : No dysuria. No renal angle tenderness. No suprapubic tenderness. Extremities: No edema, Capillary Refill Less than 3 Seconds Skin: No rashes, No breakdown Musculoskeletal: Right ankle is wrapped. Status post right ankle ORIF Neurological: Cranial nerves II-XII grossly intact, DTR 2+/4. No acute focal neurological deficit. Psych/Mental Status: Normal Affect, Appropriate. Assessment & Plan Assessment/Plan (1) Acute hyponatremia: (2) Fall: (3) Closed trimalleolar fracture of ankle: (4) Hypokalemia: (5) Hyperglycemia: PLAN: Plan 63-year-old female admitted after she fell down while she was taking her trash out. She stepped on uneven surface, rolled her ankle fell down with severe pain and unable to bear weight. 1. Right ankle closed trimalleolar fracture -Status post closed reduction in the ED. Postreduction CT shows improved alignment. Dr. Rodriguez has been notified and consulted and patient is going for surgery today. -Scheduled Tylenol -As needed oxycodone -As needed IV Dilaudid - scheduled Colace -As needed senna -PT/OT consultation for postoperative assistance Chest x-ray shows bilateral interstitial infiltrate. Does not look like acute abnormality. No hypoxia 3/6: Continue PT OT. Patient wanted to go home. 2. Acute hypokalemia -40 mill equivalents p.o. potassium. Repeat labs shows potassium at low normal, 3.6. Serum magnesium normal. Luis sphorus 2.1. Patient started on Neutra-Phos. 3. hyponatremia unclear whether acute or chronic but most likely chronic due to HCTZ as we have no recent labs here -Most recent sodium was 136 in 2017 -Hold hydrochlorothiazide -continue citalopram for now but this also could be contributing -Repeat sodium 139. Hyponatremia resolved. TSH 2.68. Cortisol high at 24.6. 3/6: Sodium potassium and electrolytes in normal range. Mechanical fall with resultant right trimalleolar fracture -Related to unlevel footing -PT/OT consultation History of breast cancer -Currently in remission -Status post bilateral radical mastectomy Hypertension -Hold home hydrochlorothiazide -As needed hydralazine for systolic greater than 160 -Monitor blood pressure Depression -Continue home citalopram for now but could consider discontinuing if sodium does not improve Tobacco abuse -Recommend cessation -Nicotine patch made available at 21 mcg as patient smokes about a pack a day DVT prophylaxis -Subcu Lovenox daily CODE STATUS -Full code is verified on admission Laboratory Results 08/08/23 12:35: Hemoglobin A1c 5.3 08/08/23 20:55: Sodium 132 L, Potassium 2.9 L, Chloride 99, Carbon Dioxide 28.0, Anion Gap 5, BUN 10, Creatinine 0.66, Estim Creat Clear Calc 86.27, Est GFR (MDRD) Af Amer 117, Est GFR (MDRD) Non-Af 97, BUN/Creatinine Ratio 15.2, Glucose 104, Calcium 8.7 08/09/23 05:09: WBC 5.8, RBC 3.91 L, Hgb 12.7, Hct 36.1 L, MCV 92.3, MCH 32.5 H, MCHC 35.2, RDW Std Deviation 40.3, RDW Coeff of Vandana 11.9, Plt Count 211, MPV 9.8, Immature Gran % (Auto) 0.300, Neut % (Auto) 62.1, Lymph % (Auto) 26.9, [place] % (Auto) 9.4, Eos % (Auto) 1.0, Baso % (Auto) 0.3, Absolute Neuts (auto) 3.6, Absolute Lymphs (auto) 1.57, Nucleated RBC % 0, Sodium 139, Potassium 3.6, Chloride 104, Carbon Dioxide 28.0, Anion Gap 7, BUN 9, Creatinine 0.60, Estim Creat Clear Calc 94.29, Est GFR (MDRD) Af Amer 131, Est GFR (MDRD) Non-Af 109, BUN/Creatinine Ratio 15.1, Glucose 95, Calcium 8.9, Phosphorus 2.1 L, Magnesium 2.1, Total Bilirubin 0.80, AST 25, ALT 22, Alkaline Phosphatase 78, Total Protein 6.2 L, Albumin 3.0 L, Globulin 3.2, Albumin/Globulin Ratio 0.9, TSH 2 .68, Cortisol 24.60 H Clinical Impression(s) from Imaging Studies Ankle X-Ray 08/08/23 11:55 IMPRESSION: Fracture of the medial malleolus of the distal tibia, with 1.3 cm lateral displacement. Fracture of the distal fibula with lateral angulation. 1.3 cm lateral subluxation of the talus with respect to the distal tibia. Soft tissue swelling overlying the lateral malleolus. Electronically Signed: Dick Ha MD at 12:14 EST , Lower Extremity CT 08/08/23 14:11 IMPRESSION: Trimalleolar fracture-subluxation of the right ankle with improved alignment status post closed reduction. Electronically Signed: Belen Willis MD at 15:02 EST , Chest X-Ray 08/08/23 16:40 IMPRESSION: Bibasilar interstitial infiltrates Electronically Signed: Javier Conner MD at 17:50 EST , Charges/Coding Visit Charges Inpatient E&M: 76392 Subs Hosp L2
--- NOTE | 2023-08-10 13:15 | DCINST_ITS ---
Discharge Instructions Diet Discharge Diet: No restrictions Activity Discharge Activity: - (Nonweightbearing on right leg/foot.) Keep extremity elevated above heart level: Right Leg Dressing / Incision Call your doctor if you observe: Fever of 101 or Higher, Coldness, Increased Pain, Numbness or Tingling, Change in Color, Inability to urinate, Inability to have a bowel movement, Using more than 1 pad per hour, Shortness of breath, Dizziness, Fainting spells, Swelling in the ankles, Chest pain, Prolonged hiccupping, Increased palpitations (irregular heartbeat) and Calf discomfort Follow Up Care When: IN 2 WEEKS Test Results: Test results from this visit will be discussed in further detail at your follow- up appointment, if applicable. Discharge Plan Admission Admit Date/Time: 08/08/23 15:57 Attending Provider: Eber Ruffin Primary Care Provider: Sterling Knutson Consulting Providers: Aislinn Ha; Pacheco Rodriguez Instructions Patient Instructions: Post-Op Tips: Foot Additional Instructions / Restrictions: Maintain nonweightbearing right lower extremity assisted by walker. Ice behind knee 3 times a day for 15 minutes. Elevate right lower extremity above the level of heart at rest Take prescriptions as directed Follow-up with Dr. Rodriguez in 1 week outpatient setting Discharge Orders/Prescriptions Prescriptions: New enoxaparin [Lovenox] 40 mg/0.4 mL syringe 40 mg subcut DAILY Qty: 12 0RF oxycodone 5 mg capsule 5 mg PO Q6H PRN (Reason: pain) 7 Days Qty: 28 0RF nicotine 21 mg/24 hr Patch 24 Hour 21 mg transdermal DAILY 28 Days Qty: 28 0RF potassium, sodium phosphates 280-160-250 mg Powder In Packet 1 packet PO TID 2 Days Qty: 6 0RF sennosides-docusate sodium [Stool Softener-Stimulant Laxat] 8.6-50 mg Tablet 2 tab PO BID PRN PRN (Reason: Constipation) Qty: 0 0RF Continued citalopram [Celexa] 20 MG tablet 20 mg PO DAILY hydrochlorothiazide 25 mg tablet 25 mg PO DAILY Patient Comments: Take 1 tablet by mouth once daily. Referrals / Follow Up: Pacheco Rodriguez DPM [Med Staff - Active Staff] - Within 1 Week Sterling Knutson MD [Primary Care Provider] - Disposition Disposition (needs filled in before D/C Order can be placed): Home Health Service
--- NOTE | 2023-08-10 13:20 | DS.PCM_ITS ---
Providers Date of Admission: 08/08/23 Date of Discharge: 08/10/23 Primary Care Physician: Dr. Sterling Knutson MD Consultations 08/08/23 17:13 Consult: Podiatry Routine Consulting Provider: Pacheco Rodriguez Reason for Consult: R trimalleolar fracture EMERGENT Consult: No MD Notified: Yes Date Notified: 08/08/23 Time Notified: 15:58 Method of Notification: ED Physician Initiated Reason For Visit: R TRIMALLEOLAR FRACTURE Diagnosis Discharge Diagnosis (1) Acute hyponatremia: Status: Acute Code(s): E87.1 - Hypo-osmolality and hyponatremia (2) Fall: Status: Acute Code(s): W19.XXXA - Unspecified fall, initial encounter (3) Closed trimalleolar fracture of ankle: Status: Acute Code(s): S82.853A - Displaced trimalleolar fracture of unspecified lower leg, initial encounter for closed fracture (4) Hypokalemia: Status: Acute Code(s): E87.6 - Hypokalemia (5) Hyperglycemia: Status: Acute Code(s): R73.9 - Hyperglycemia, unspecified Plan 63-year-old female admitted after she fell down while she was taking her trash out. She stepped on uneven surface, rolled her ankle fell down with severe pain and unable to bear weight. 1. Right ankle closed trimalleolar fracture -Status post closed reduction in the ED. Postreduction CT shows improved alignment. Dr. Rodriguez has been notified and consulted and patient is going for surgery today. -Scheduled Tylenol -As needed oxycodone -As needed IV Dilaudid - scheduled Colace -As needed senna -PT/OT consultation for postoperative assistance Chest x-ray shows bilateral interstitial infiltrate. Does not look like acute abnormality. No hypoxia 08/09: Continue PT OT. Patient wanted to go home. Patient has prescription of enoxaparin 40 mg subcu daily, DVT dose for 30 days and oxycodone. Follow-up in flooring sales manager Dr. Rodriguez in 1 week. 2. Acute hypokalemia -40 mill equivalents p.o. potassium. Repeat labs shows potassium at low normal, 3.6. Serum magnesium normal. Phosphorus 2.1. Patient started on Neutra-Phos. 6: Prescription for Neutra-Phos given. 3. hyponatremia unclear whether acute or chronic but most likely chronic due to HCTZ as we have no recent labs here -Most recent sodium was 136 in 2017 -Hold hydrochlorothiazide -continue citalopram for now but this also could be contributing -Repeat sodium 139. Hyponatremia resolved. TSH 2.68. Cortisol high at 24.6. 08/09: Sodium potassium and electrolytes in normal range. Mechanical fall with resultant right trimalleolar fracture -Related to unlevel footing -PT/OT consultation History of breast cancer -Currently in remission -Status post bilateral radical mastectomy Hypertension -Hold home hydrochlorothiazide -As needed hydralazine for systolic greater than 160 -Monitor blood pressure Depression -Continue home citalopram for now but could consider discontinuing if sodium does not improve Tobacco abuse -Recommend cessation -Nicotine patch made available at 21 mcg as patient smokes about a pack a day DVT prophylaxis -Subcu Lovenox daily CODE STATUS -Full code is verified on admission discharge medication reconciliation done. Discharge follow-up instructions completed. Discharge process discussed with the patient and all questions were answered to patient's satisfaction. Follow with PCP in 1 to 2 weeks Total time spent, exact 35 minutes on discharge meds reconciliation, exami nation, coordination of care with nurses and ancillary staff, review of imaging and blood test and discussion with the patient on follow-up instructions. Laboratory Results 08/08/23 12:35: Hemoglobin A1c 5.3 08/08/23 20:55: Sodium 132 L, Potassium 2.9 L, Chloride 99, Carbon Dioxide 28.0, Anion Gap 5, BUN 10, Creatinine 0.66, Estim Creat Clear Calc 86.27, Est GFR (MDRD) Af Amer 117, Est GFR (MDRD) Non-Af 97, BUN/Creatinine Ratio 15.2, Glucose 104, Calcium 8.7 08/09/23 05:09: WBC 5.8, RBC 3.91 L, Hgb 12.7, Hct 36.1 L, MCV 92.3, MCH 32.5 H, MCHC 35.2, RDW Std Deviation 40.3, RDW Coeff of Vandana 11.9, Plt Count 211, MPV 9.8, Immature Gran % (Auto) 0.300, Neut % (Auto) 62.1, Lymph % (Auto) 26.9, [place] % (Auto) 9.4, Eos % (Auto) 1.0, Baso % (Auto) 0.3, Absolute Neuts (auto) 3.6, Absolute Lymphs (auto) 1.57, Nucleated RBC % 0, Sodium 139, Potassium 3.6, Chloride 104, Carbon Dioxide 28.0, Anion Gap 7, BUN 9, Creatinine 0.60, Estim Creat Clear Calc 94.29, Est GFR (MDRD) Af Amer 131, Est GFR (MDRD) Non-Af 109, BUN/Creatinine Ratio 15.1, Glucose 95, Calcium 8.9, Phosphorus 2.1 L, Magnesium 2.1, Total Bilirubin 0.80, AST 25, ALT 22, Alkaline Phosphatase 78, Total Protein 6.2 L, Albumin 3.0 L, Globulin 3.2, Albumin/Globulin Ratio 0.9, TSH 2.68, Cortisol 24.60 H Clinical Impression(s) from Imaging Studies Ankle X-Ray 08/08/23 11:55 IMPRESSION: Fracture of the medial malleolus of the distal tibia, with 1.3 cm lateral displacement. Fracture of the distal fibula with lateral angulation. 1.3 cm lateral subluxation of the talus with respect to the distal tibia. Soft tissue swelling overlying the lateral malleolus. Electronically Signed: Dick Ha MD at 12:14 EST , Lower Extremity CT 08/08/23 14:11 IMPRESSION: Trimalleolar fracture-subluxation of the right ankle with improved alignment status post closed reduction. Electronically Signed: Belen Willis MD at 15:02 EST , Chest X-Ray 08/08/23 16:40 IMPRESSION: Bibasilar interstitial infiltrates Electronically Signed: Javier Conner MD at 17:50 EST , Medications at Discharge Home Medications citalopram 20 mg tablet (Celexa) 20 mg PO DAILY anxiety 08/16/16 hydrochlorothiazide 25 mg tablet 25 mg PO DAILY bp 08/08/23 enoxaparin 40 mg/0.4 mL subcutaneous syringe (Lovenox) 40 mg (0.4 mL) subcut DAILY #12 mL 08/10/23 nicotine 21 mg/24 hr daily transdermal patch 21 mg transdermal DAILY 4 weeks #28 ea 08/10/23 oxycodone 5 mg capsule 5 mg PO Q6H PRN pain 7 days #28 caps 08/10/23 potassium, sodium phosphates 280 mg-160 mg-250 mg oral powder packet 1 packet PO TID 2 days #6 ea 08/10/23 sennosides 8.6 mg-docusate sodium 50 mg tablet (Stool Softener-Stimulant Laxative) 2 tab PO BID PRN PRN Constipation #0 tabs 08/10/23 Physical Exam Narrative Seen and examined on the day of discharge. Please see progress note on the same date. Weight / BMI Weight Weight: 154 lb 8.705 oz Body Mass Index (BMI) 26.4 ABG / Lab / Microbiology Data 08/10/23 05:35 08/10/23 05:35 Laboratory: Laboratory Results - last 24 hr 08/09/23 14:28: POC Glucose 103 08/10/23 05:35: WBC 8.1, RBC 3.69 L, Hgb 11.9 L, Hct 35.4 L, MCV 95.9, MCH 32.2 H, MCHC 33.6, RDW Std Deviation 42.9, RDW Coeff of Vandana 12.2, Plt Count 184, MPV 9.7, Immature Gran % (Auto) 0.400, Neut % (Auto) 80.9 H, Lymph % (Auto) 9.3 L, [place] % (Auto) 8.6, Eos % (Auto) 0.4, Baso % (Auto) 0.4, Absolute Neuts (auto) 6.5, Absolute Lymphs (auto) 0.75 L, Nucleated RBC % 0, Sodium 140, Potassium 3.8, Chloride 107, Carbon Dioxide 28.0, Anion Gap 5, BUN 6 L, Creatinine 0.55, Estim Creat Clear Calc 103.20, Est GFR (MDRD) Af Amer 145, Est GFR (MDRD) Non-Af 120, BUN/Creatinine Ratio 10.9, Glucose 115 H, Calcium 8.3 L Radiography Diagnostic Testing: Radiology Impression Ankle X-Ray 08/09/23 07:15 IMPRESSION: New ORIF hardware with anatomic alignment of the right ankle. Electronically Signed: Dick Ha MD at 14:14 EST , D/C Instructions Discharge Diet: No restrictions Keep extremity elevated above heart level: Right Leg Call your doctor if you observe: Fever of 101 or Higher, Coldness, Increased Pain, Numbness or Tingling, Change in Color, Inability to urinate, Inability to have a bowel movement, Using more than 1 pad per hour, Shortness of breath, Dizziness, Fainting spells, Swelling in the ankles, Chest pain, Prolonged hiccupping, Increased palpitations (irregular heartbeat) and Calf discomfort When: IN 2 WEEKS Meaningful Use Info Meaningful Use Diagnoses (Choose all that apply): None applicable Discharge Plan Admission Admit Date/Time: 08/08/23 15:57 Attending Provider: Eber Ruffin Primary Care Provider: Sterling Knutson Consulting Providers: Aislinn Ha; Pacheco Rodriguez Instructions Patient Instructions: Post-Op Tips: Foot Additional Instructions / Restrictions: Maintain nonweightbearing right lower extremity assisted by walker. Ice behind knee 3 times a day for 15 minutes. Elevate right lower extremity above the level of heart at rest Take prescriptions as directed Follow-up with Dr. Rodriguez in 1 week outpatient setting Discharge Orders/Prescriptions Prescriptions: New enoxaparin [Lovenox] 40 mg/0.4 mL syringe 40 mg subcut DAILY Qty: 12 0RF oxycodone 5 mg capsule 5 mg PO Q6H PRN (Reason: pain) 7 Days Qty: 28 0RF nicotine 21 mg/24 hr Patch 24 Hour 21 mg transdermal DAILY 28 Days Qty: 28 0RF potassium, sodium phosphates 280-160-250 mg Powder In Packet 1 packet PO TID 2 Days Qty: 6 0RF sennosides-docusate sodium [Stool Softener-Stimulant Laxat] 8.6-50 mg Tablet 2 tab PO BID PRN PRN (Reason: Constipation) Qty: 0 0RF Continued citalopram [Celexa] 20 MG tablet 20 mg PO DAILY hydrochlorothiazide 25 mg tablet 25 mg PO DAILY Patient Comments: Take 1 tablet by mouth once daily. Referrals / Follow Up: Pacheco Rodriguez DPM [Med Staff - Active Staff] - Within 1 Week Sterling Knutson MD [Primary Care Provider] - Disposition Disposition (needs filled in before D/C Order can be placed): Home Health Service Charges/Coding Visit Charges Inpatient E&M: 53676 Disch Hosp >30min
--- NOTE | 2023-08-10 13:27 | CASEMGMT ---
Addendum entered by Narda Coats 08/10/23 15:31: [place] [facility] [place] [facility] [place] at this time. Original Note: TC to [facility], cost of lovenox is $61.41.
--- NOTE | 2023-08-10 13:31 | CASEMGMT ---
Discharge Planning A list of HH providers including quality and resource use data and consistent with the patient's preferred geographic region, medical needs, and insurance network was created in [employer].? This list was provided to the RN FELICITY. Marva Martini, Discharge Planning Asst.
--- NOTE | 2023-08-10 14:30 | CASEMGMT ---
Social Work SW met with pt in room and introduced self and role of SW. Pt to be discharged with Lovenox. SW explained this to pt and provided helton of medication and pt states helton is not prohibitive. SW requested approver administration of this medication with pt. SW spoke with pt regrading home health services. Pt declines [facility] stating she will be discharging to her parents house and has all needed DME and pt plans to return to work as soon as possible. SW discussed out patient therapy and pt will follow up with senior graphic designer if she decides she would like this. Pt denies any further dc needs. BLAIR Joiner
[2023-08-10 14:48] VITALS: BP 142/67; PULSE 89; RESP 18; TEMP 37.2; O2SAT 93
--- NOTE | 2023-08-10 15:30 | CASEMGMT ---
Discharge Planning Patient has requested a walker upon discharge. Patient given DME [employer] options and she would selected [facility]. RN CM updated. Marva Martini, Discharge Planning Asst.
== END 2023-08-10 16:05 | disposition home health service (06) | DRG 493 ==
LOC: ED 15:02 → MS3 08-09 06:27
PROVIDERS: Physician Assistant; Podiatrist; Admitting Provider Internal Medicine; Emergency Provider Emergency Medicine; PCP Family Medicine; Visit Provider Internal Medicine
PROC: (CPT 27822; principal; 2023-08-09 11:40)
DX: S82.851A Displaced trimalleolar fracture of right lower leg, initial encounter for closed fracture (principal); E87.1 Hypo-osmolality and hyponatremia; I10 Essential (primary) hypertension; F32.A Depression, unspecified; E87.6 Hypokalemia; S80.211A Abrasion, right knee, initial encounter; F17.210 Nicotine dependence, cigarettes, uncomplicated; S80.212A Abrasion, left knee, initial encounter; R73.9 Hyperglycemia, unspecified; Z90.13 Acquired absence of bilateral breasts and nipples; Z85.3 Personal history of malignant neoplasm of breast; Z79.899 Other long term (current) drug therapy; W17.89XA Other fall from one level to another, initial encounter; Y93.89 Activity, other specified; Y92.008 Other place in unspecified non-institutional (private) residence as the place of occurrence of the external cause
CPT/HCPCS: 27818; 27822; 64445; 29515; 36415; 71045; 73610; 73700; 76000; 80048; 80053; 82533; 82550; 82962; 83036; 83735; 84100; 84443; 85025; 93005; 94668; 96361; 96372; 96374; 96375; 96376; 97162; 97166; 99152; 99221; 99284; 99406; C1713; J7030; J7120; A4216; G0378; J2405

== ENCOUNTER 2024-11-27 12:10 | Emergency (ER) | payer OTHER, SELFPAY ==
[2024-11-27 12:12] VITALS: BP 189/83; PULSE 104; RESP 18; TEMP 36.6; O2SAT 96; BMI 24.5
--- NOTE | 2024-11-27 13:25 | RAD_ITS ---
PROCEDURE: WRIST MIN 3 VIEWS 11/27/2024 REASON FOR EXAM: INJURY TECHNIQUE: WRIST MIN 3 VIEWS COMPARISON: None FINDINGS: There is a comminuted fracture of the distal ulna with slight impaction. There is linear lucency at the distal radial articular surface which is superimposed on the lunate which may represent nondisplaced fracture. The radiocarpal and distal radioulnar joints are aligned. Soft tissue swelling is noted. Mineralization is normal. There is no visible atherosclerosis. RAD/Wrist min 3 Views IMPRESSION: There is a comminuted fracture of the distal ulna with slight impaction. There is linear lucency at the distal radial articular surface which is superim posed on the lunate which may represent nondisplaced fracture. Critical results were discussed with Dr. Eugene by Dr. Alcantara at the time of di ctation. Reading Location: [facility]
[2024-11-27 14:42] VITALS: BP 130/78; PULSE 78; RESP 18; TEMP 36.6; O2SAT 99
--- NOTE | 2024-11-29 07:52 | EDS_ITS ---
HPI History of Present Illness Chief Complaint: Upper Extremity Injury Narrative Narrative: [id number]-rcuh-[id number] mechanical fall 2 evenings ago tripping over her cat. No head injuries. No anticoagulants. No history of fractures. [facility] Medical History Right hand fracture Closed displaced trimalleolar fracture of right ankle Osteopenia Smoker Depression History of breast cancer Hypertension Home Medications ?Medication ?Instructions ?Recorded ?Last Taken ?Type citalopram 20 mg tablet (Celexa) 20 mg PO DAILY anxiet y 08/16/16 08/08/23 08:16 History hydrochlorothiazide 25 mg tablet 25 mg PO DAILY bp 09/2708/08/23 08:17 History enoxaparin 40 mg/0.4 mL 40 mg (0.4 mL) subcut DAILY #12 mL 08/10/23 Unknown Rx subcutaneous syringe (Lovenox) nicotine 21 mg/24 hr daily 21 mg transdermal DAILY 4 w eeks 08/10/23 Unknown Rx transdermal patch #28 ea oxycodone 5 mg capsule 5 mg PO Q6H PRN pain 7 days #28 08/10/23 Unknown Rx caps potassium, sodium phosphates 280 1 packet PO TID 2 day s #6 ea 08/10/23 Unknown Rx mg-160 mg-250 mg oral powder packet sennosides 8.6 mg-docusate sodium 2 tab PO BID PRN PRN Constipation 08/10/23 Unknown Rx 50 mg tablet (Stool #0 tabs Softener-Stimulant Laxative) Allergy/AdvReac Type Severity Reaction Status Date / Time No Known Allergies Allergy Verified 11/27/24 12:11 Surgical History H/O mastectomy Social History household members: none housing: house Smoking Status: Current every day smoker tobacco type: cigarettes alcohol intake: never substance use type: does not use ROS ROS ED Constitutional Constitutional ED: Denies fever(s) Cardiovascular Cardiovascular: Denies chest pain Respiratory/Chest Respiratory/Chest: Denies cough Gastrointestinal Gastrointestinal: Denies diarrhea or vomiting Musculoskeletal Musculoskeletal: Reports none and other Details: Right wrist pain and swelling Integumentary Denies rash or wounds Neurologic Neurologic: Denies weakness EXAM Physical Exam Const Positive well nourished and well developed Constitutional Narrative: GCS 15. General Appearance ED: well developed HEENT normocephalic and atraumatic Eyes General Eye ED: Yes normal appearance of both eyes Neck full ROM Resp normal respiratory effort and normal air movement Cardio regular rate and regular rhythm GI soft to palpation Extremity Extremity Narrative: Right upper extremity: No clavicle tenderness no shoulder tenderness. There is developing ecchymosis distal biceps proximal forearm. No deformities full range of motion soft compartments. No loss of function. Distal forearm ulnar aspect swelling tenderness at the distal ulna, no radial tenderness no snuffbox tenderness. No hand tenderness. Pulses intact distally. Neuro oriented x3 Skin Skin Narrative: See above MDM MDM MDM Narrative Medical decision making narrative: Interventions / MDM: Differential diagnosis: Fracture, contusions Diagnosis considered but do not suspect: N/A My EKG interpretation: N/A Imaging independently reviewed and interpreted by myself: Right wrist x-ray 3 views: Comminuted minimally displaced displaced distal ulna fracture. External documents reviewed: N/A Test considered but not ordered:N/A ED course: Patient took ibuprofen prior to arrival declines any further medications. Fall 2 days ago continue wrist pain monitor distal ulnar. X-ray ordered. X-ray on my review concerns for, distal ulnar fracture no radial fracture. She is placed into AP plaster splint with more protection than the ulnar aspect. Procedure note: Verbal consent. Nylon sleeve placed, Kerlix dressing extra padding at the wrist. 3 inch AP splint placed more towards the ulnar aspect for protection of the fracture. Secured with Rico wrap. Neurovascular intact post splinting. Patient declined any medications for home. Should continue Tylenol and Motrin. She is given orthopedic follow-up. Of note prior to patient being discharged results discussed with radiologist also reported linear lucency distal radial articular surface imposed on the lunate possible nondisplaced fracture. I discussed this with the patient however management currently be the same with splinting. She will be evaluated by orthopedics as an outpatient. All questions were answered. Re-evaluation: stable Disposition discussed with patient/family/significant other: Patient Case discussed with consulting clinician: N/A This note was generated with [employer] dictation software. It may contain incorrect words, spelling, and punctuation that were not noted in checking the note before signing. Radiography Diagnostic Testing: Clinical Impression(s) from Imaging Studies Wrist X-Ray 11/27/24 13:25 IMPRESSION: There is a comminuted fracture of the distal ulna with slight impaction. There is linear lucency at the distal radial articular surface which is superimposed on the lunate which may represent nondisplaced fracture. Critical results were discussed with Dr. Eugene by Dr. Alcantara at the time of dictation. Reading Location: [facility] Discharge Plan Triage Chief Complaint: Upper Extremity Injury ED Provider: Baron Eugene Dx/Rx/DC Orders Clinical Impression: Right distal ulnar fracture, Fall Instructions: ED Fracture, Upper Extremity Prescriptions: No Action citalopram [Celexa] 20 MG tablet 20 mg PO DAILY hydrochlorothiazide 25 mg tablet 25 mg PO DAILY Patient Comments: Take 1 tablet by mouth once daily. enoxaparin [Lovenox] 40 mg/0.4 mL syringe 40 mg subcut DAILY Qty: 12 0RF oxycodone 5 mg capsule 5 mg PO Q6H PRN (Reason: pain) 7 Days Qty: 28 0RF nicotine 21 mg/24 hr Patch 24 Hour 21 mg transdermal DAILY 28 Days Qty: 28 0RF potassium, sodium phosphates 280-160-250 mg Powder In Packet 1 packet PO TID 2 Days Qty: 6 0RF sennosides-docusate sodium [Stool Softener-Stimulant Laxat] 8.6-50 mg Tablet 2 tab PO BID PRN PRN (Reason: Constipation) Qty: 0 0RF Primary Care Provider: Sterling Knutson Referrals: Sanchez Crews MD [Med Staff - Active Staff] - 1 Week Sterling Knutson MD [Primary Care Provider] - Activity Restrictions/Additional Instructions: Isolated distal ulnar fracture from your fall. Keep the splint on. Continue Tylenol or Motrin. Follow-up with Dr. Crews. Continue to ice and elevate. Print Language: Estonian Disposition Disposition: Home, Self Care Discharge Date/Time: 11/27/24 14:42
== END 2024-11-27 14:42 | disposition home or self-care (01) ==
PROVIDERS: Emergency Provider Emergency Medicine; PCP Family Medicine; Visit Provider Emergency Medicine
DX: S52.25 Comminuted fracture of shaft of ulna (principal); F17.210 Nicotine dependence, cigarettes, uncomplicated; Z85.3 Personal history of malignant neoplasm of breast; I10 Essential (primary) hypertension; W01.0XXA Fall on same level from slipping, tripping and stumbling without subsequent striking against object, initial encounter; Z90.10 Acquired absence of unspecified breast and nipple
CPT/HCPCS: 73110; 99282